=== PATIENT | female | born 1960 | race Caucasian/White ===

== ENCOUNTER 2016-07-31 18:04 | Emergency (ER) | payer OTHER, MEDICAID ==
[2013-02-13 17:22] VITALS: BMI 26.3
[~2016-07-31 18:04] MED LIST: ATIVAN0.5 MG PO; CELEXA20 MG PO; CRESTOR20 MG PO; LOTREL 10/20 CA1 CAP; NEXIUM40 MG PO; NORCO 5/325 TAB1 TA1 PO
== END 2016-07-31 22:35 | disposition home or self-care (01) ==
LOC: D.ER 18:04
DX: M25.552 Pain in left hip (principal); W01.0XXA Fall on same level from slipping, tripping and stumbling without subsequent striking against object, initial encounter; Y93.89 Activity, other specified; Y92.019 Unspecified place in single-family (private) house as the place of occurrence of the external cause; J44.9 Chronic obstructive pulmonary disease, unspecified; I10 Essential (primary) hypertension

== ENCOUNTER 2016-12-11 19:45 | Emergency (ER) | payer OTHER, MEDICAID ==
[2013-02-13 17:22] VITALS: BMI 26.3
== END 2016-12-11 23:20 | disposition home or self-care (01) ==
LOC: D.ER 19:45
DX: S82.001A Unspecified fracture of right patella, initial encounter for closed fracture (principal); W19.XXXA Unspecified fall, initial encounter; Y93.89 Activity, other specified; Y92.029 Unspecified place in mobile home as the place of occurrence of the external cause; F17.200 Nicotine dependence, unspecified, uncomplicated

== ENCOUNTER 2016-12-16 12:46 | Day surgery (SDC) | payer OTHER, MEDICAID ==
[~2016-12-16 12:46] MED LIST changes: +ALEVE220 MG PO; +HYDROCODONE-APA1 TAB PO; +KLONOPIN1 MG PO; -LOTREL 10/20 CA1 CAP; +LOTREL 10/20 CA1 CAP PO; +MEPERIDINE HCL50 MG PO; -NORCO 5/325 TAB1 TA1 PO
[2016-12-16 14:55] VITALS: BP 114/62; BMI 22.1
[2016-12-16 15:21] LABS: HEMATOCRIT 40.1 % (36.0-48.0); HEMOGLOBIN 13.4 g/dL (12-16); MCH 32.5 pg (26.0-34.0); MCHC 33.4 g/dL (31.0-37.0); MCV 97.3 fL (80.0-100.0); MEAN PLATELET VOLUME 10.7 fL (7.4-10.4); RBC 4.12 10x6/uL (4.00-5.40); RDW 13.3 % (11.5-14.5); WBC 6.2 10x3/uL (4.8-10.8)
[2016-12-16] MEDS ORDERED: PERCOCET 10/3251 TA1 PO (17:05)
--- NOTE | 2016-12-16 17:51 | NUR ---
PATIENT STATES PAIN IS 6/10. PATIENT REQUIRES SUPPLEMENTAL 2L/NC AFTER ADMINISTRATION OF DILAUDID 1MG. SHE IS CURRENTLY TAKING HYDROCODONE AND DEMEROL ON A DAILY BASIS. DISCHARGE PER ANESTHESIA.
--- NOTE | 2016-12-16 19:17 | NUR ---
181 IV DC WITH CATHER TIP INTACT
--- NOTE | 2016-12-29 08:10 | OP ---
PATIENT NAME: CONSTANZA SOLIS MEDICAL RECORD: [id number] :58 LOCATION:[facility] ADMISSION DATE: SURGEON: RAFY BENITES MD DATE OF OPERATION: 12/16/2016 PREOPERATIVE DIAGNOSIS: Transverse fracture of the right patella. POSTOPERATIVE DIAGNOSIS: Transverse fracture of the right patella. PROCEDURE: Open reduction and internal fixation of the right patella. SURGEON: Rafy Benites MD. ANESTHESIA: General. INTRAOPERATIVE COMPLICATIONS: None. SUMMARY OF PATHOLOGIC FINDINGS: The patient had a transverse fracture of the right patella consistent with preoperative radiographs. OPERATIVE SUMMARY IN DETAIL: After obtaining the appropriate preoperative orthopedic surgery consent as well as anesthetic consultation, evaluation and clearance, the patient was brought to the operating room and placed on the operating table in supine position. After general laryngeal mask was administered, tourniquet was placed about the proximal aspect of the right lower extremity. The right lower extremity was then prepped and draped in routine sterile fashion. The leg was elevated and exsanguinated, tourniquet inflated to 350 mmHg. Midline incision was taken down to the level of the fracture itself. Dissection was carried out to curettage all fracture hematoma and identified the split in the medial and lateral retinaculum. Large bone reduction forceps was used to reapproximate it into an anatomic position. Compression screws were then placed in triplicate across this, resulting in anatomic roman catholic. At this point, FiberWire was then placed in all 3 of the screws and then tied in a zxaiea-cy-stkoe position. Ethibond was then used to reapproximate the medial and lateral retinaculum. The wound was then copiously irrigated and closed with #1 Vicryl followed by 2-0 Vicryl and skin kim. Please note all of the above was done under direct fluoroscopic guidance, resulting in anatomic position. The patient was awakened and taken to recovery room in stable condition. All final needle and sponge counts were correct. TRANSINT:[id number] Voice Confirmation ID: [id number] DOCUMENT ID: [id number] RAFY BENITES MD at 0810 CC: [id number] DICTATION DATE: 12/29/16 0535 [employer] ASSOCIATE: 12/29/16 0806 [facility] 12/16/16 [address] [place] [address]
== END 2016-12-16 19:15 | disposition home or self-care (01) ==
LOC: D.OPS 12:46
PROVIDERS: Anesthesiology
DX: S82.031A Displaced transverse fracture of right patella, initial encounter for closed fracture (principal); F17.200 Nicotine dependence, unspecified, uncomplicated; Z01.812 Encounter for preprocedural laboratory examination

== ENCOUNTER → 2017-04-04 09:34 | Outpatient (CLI) | payer MEDICARE, MEDICAID ==
[~2017-04-04 09:34] MED LIST changes: +PERCOCET 10/3251 TA1 PO
== END | disposition home or self-care (01) ==
LOC: D.CT 03-25 08:30
DX: R63.4 Abnormal weight loss (principal)

== ENCOUNTER → 2017-05-05 17:55 | Outpatient (CLI) | payer MEDICARE, MEDICAID | END | disposition home or self-care (01) | LOC: D.MAMMO 10:30 | DX: Z12.31 Encounter for screening mammogram for malignant neoplasm of breast (principal) ==

== ENCOUNTER 2018-06-15 10:20 | Emergency (ER) | payer MEDICARE, MEDICAID ==
[~2018-06-15] VITALS: Ht 165.1 cm; Wt 77.3 kg
[2018-06-15 10:27] VITALS: Ht 165.1 cm; Wt 77.3 kg
[2018-06-15] MEDS ORDERED: BACLOFEN10 MG PO (10:34)
[2018-06-15] MEDS ORDERED: CARAFATE1 G PO (10:35)
[2018-06-15] MEDS ORDERED: ALBUTEROL SULF8.5 GM INH (10:35)
[2018-06-15] MEDS ORDERED: GEMFIBROZIL600 MG PO (10:35)
[2018-06-15] MEDS ORDERED: CELEXA20 MG PO (10:36)
[2018-06-15] MEDS ORDERED: RESTORIL15 MG PO (10:36)
[2018-06-15] MEDS ORDERED: NEXIUM40 MG PO (10:36)
[2018-06-15] MEDS ORDERED: TOPAMAX50 MG PO (10:37)
[2018-06-15] MEDS ORDERED: ZOFRAN ODT4 MG/UDTAB PO (10:37)
[2018-06-15] MEDS ORDERED: SCOT-TUSSI10 MG/5 ML PO (10:39)
[2018-06-15 10:57] LABS: APPEARANCE CLEAR (CLEAR); BILIRUBIN NEGATIVE (NEGATIVE); COLOR YELLOW (YELLOW); GLUCOSE NEGATIVE (NEGATIVE); KETONE NEGATIVE (NEGATIVE); NITRITE NEGATIVE (NEGATIVE); PROTEIN NEGATIVE (NEGATIVE); UROBILINOGEN NORMAL (NORMAL)
[2018-06-15 11:14] LABS: BASOPHILS 0.2 % (0-2); EOSINOPHILS 1.5 % (0-7); HEMATOCRIT 41.5 % (36.0-48.0); HEMOGLOBIN 13.7 g/dL (12-16); IMMATURE GRANULOCYTES 0.3 % (0-5); LYMPHOCYTES 24.3 % (15-50); MCH 32.8 pg (26.0-34.0); MCV 99.3 fL (80.0-100.0); MONOCYTES 7.5 % (2-11); NEUTROPHILS 66.2 % (40-80); RBC 4.18 10x6/uL (4.00-5.40); RDW 14.6 % (11.5-14.5); WBC 9.8 10x3/uL (4.8-10.8)
[2018-06-15 11:15] LABS: PLATELET COUNT 357 10x3/uL (130-400)
[2018-06-15 11:20] LABS: ALBUMIN 3.8 g/dL (3.4-5.0); ALKALINE PHOSPHATASE 217 U/L (46-116); ALT (SGPT) 14 U/L (10-68); BILIRUBIN - TOTAL 0.28 mg/dL (0.2-1.3); CALC OSMOLALITY 278 mosm/kg (275-300); CALCIUM 8.9 mg/dL (8.5-10.1); CHLORIDE - SERUM 104 mmol/L (98-107); CREATININE - SERUM 0.9 mg/dL (0.6-1.3); GLUCOSE 96 mg/dL (74-106); POTASSIUM - SERUM 3.6 mmol/L (3.5-5.1); PROTEIN - SERUM 8.4 g/dL (6.4-8.2); SODIUM 139 mmol/L (136-145); UREA NITROGEN 16 mg/dL (7-18); eGFR NON AFRICAN AMERICAN 68 mL/min (90-120)
[2018-06-15 11:23] LABS: AMYLASE - SERUM 50 U/L (25-115); LIPASE 161 U/L (73-393)
[2018-06-15 11:25] LABS: TROPONIN-I < 0.017 ng/mL (0.000-0.060)
[2018-06-15] MEDS ORDERED: ZOFRAN8 MG PO (13:22)
[2018-06-15 13:42] VITALS: BP 107/70
== END 2018-06-15 13:40 | disposition home or self-care (01) ==
LOC: D.ER 10:20
PROVIDERS: Family Medicine
DX: R10.13 Epigastric pain (principal); I10 Essential (primary) hypertension; J43.9 Emphysema, unspecified; K21.9 Gastro-esophageal reflux disease without esophagitis; F17.200 Nicotine dependence, unspecified, uncomplicated

== ENCOUNTER 2018-07-01 12:52 | Emergency (ER) | payer MEDICARE, MEDICAID ==
[~2018-07-01 12:52] MED LIST changes: +ALBUTEROL SULF8.5 GM INH; +BACLOFEN10 MG PO; +CARAFATE1 G PO; +GEMFIBROZIL600 MG PO; +RESTORIL15 MG PO; +SCOT-TUSSI10 MG/5 ML PO; +TOPAMAX50 MG PO; +ZOFRAN ODT4 MG/UDTAB PO; +ZOFRAN8 MG PO
[2018-07-01 13:33] LABS: APPEARANCE CLEAR (CLEAR); BILIRUBIN NEGATIVE (NEGATIVE); COLOR STRAW (YELLOW); GLUCOSE NEGATIVE (NEGATIVE); KETONE NEGATIVE (NEGATIVE); NITRITE NEGATIVE (NEGATIVE); PROTEIN NEGATIVE (NEGATIVE); SPECIFIC GRAVITY 1.005 (1.005-1.020); UROBILINOGEN NORMAL (NORMAL)
[2018-07-01 13:36] LABS: HEMATOCRIT 43.7 % (36.0-48.0); HEMOGLOBIN 14.8 g/dL (12-16); MCH 33.2 pg (26.0-34.0); MCHC 33.9 g/dL (31.0-37.0); MEAN PLATELET VOLUME 9.8 fL (7.4-10.4); PLATELET COUNT 366 10x3/uL (130-400); RBC 4.46 10x6/uL (4.00-5.40); WBC 9.5 10x3/uL (4.8-10.8)
[2018-07-01 13:44] LABS: ALBUMIN 3.7 g/dL (3.4-5.0); ANION GAP 17.3 mmol/L (8-16); BILIRUBIN - TOTAL 0.22 mg/dL (0.2-1.3); CALCIUM 8.6 mg/dL (8.5-10.1); CARBON DIOXIDE 20.1 mmol/L (21.0-32.0); CREATININE - SERUM 1.1 mg/dL (0.6-1.3); POTASSIUM - SERUM 3.4 mmol/L (3.5-5.1); PROTEIN - SERUM 8.2 g/dL (6.4-8.2)
[2018-07-01 13:59] LABS: HELICOBACTER PYLORI IGG NEGATIVE (NEGATIVE)
[2018-07-01] MEDS ORDERED: PROTONIX40 MG PO (14:01)
[2018-07-01 14:03] LABS: LYMPHOCYTES 11 % (15-50); MONOCYTES 7 % (2-11); NEUTROPHILS 73 % (40-80); PLATELET ESTIMATE NORMAL
[2018-07-01] MEDS ORDERED: PHENERGAN25 M1 PO (14:03)
== END 2018-07-01 14:13 | disposition home or self-care (01) ==
LOC: D.ER 12:52
PROVIDERS: Emergency Medicine
DX: R11.0 Nausea (principal)

== ENCOUNTER 2018-10-09 11:50 | Emergency (ER) | payer MEDICARE, MEDICAID ==
[~2018-10-09] VITALS: Ht 165.1 cm; Wt 77.3 kg
[~2018-10-09 11:50] MED LIST changes: +PHENERGAN25 M1 PO; +PROTONIX40 MG PO
[2018-10-09 12:32] VITALS: Ht 165.1 cm; Wt 77.3 kg
[2018-10-09] MEDS ORDERED: NEURONTIN 400400 MG PO (12:37)
[2018-10-09] MEDS ORDERED: BACLOFEN10 MG PO (15:36)
[2018-10-09 15:51] VITALS: BP 103/54
== END 2018-10-09 15:52 | disposition home or self-care (01) ==
LOC: D.ER 11:50
DX: M43.8X6 Other specified deforming dorsopathies, lumbar region (principal); M54.16 Radiculopathy, lumbar region

== ENCOUNTER 2019-03-07 13:51 | Emergency (ER) | payer MEDICARE, MEDICAID ==
[~2019-03-07] VITALS: Ht 165.1 cm; Wt 81.8 kg
[~2019-03-07 13:51] MED LIST changes: +NEURONTIN 400400 MG PO
[2019-03-07 13:58] VITALS: Ht 165.1 cm; Wt 81.8 kg
[2019-03-07 14:42] LABS: BASOPHILS 0.2 % (0-2); EOSINOPHILS 1.2 % (0-7); HEMATOCRIT 37.3 % (36.0-48.0); HEMOGLOBIN 12.5 g/dL (12-16); IMMATURE GRANULOCYTES 0.7 % (0-5); LYMPHOCYTES 12.2 % (15-50); MCH 34.8 pg (26.0-34.0); MCHC 33.5 g/dL (31.0-37.0); MCV 103.9 fL (80.0-100.0); MEAN PLATELET VOLUME 9.1 fL (7.4-10.4); MONOCYTES 6.9 % (2-11); NEUTROPHILS 78.8 % (40-80); PLATELET COUNT 373 10x3/uL (130-400); RBC 3.59 10x6/uL (4.00-5.40); RDW 14.2 % (11.5-14.5); WBC 12.1 10x3/uL (4.8-10.8)
[2019-03-07 14:46] LABS: CALC OSMOLALITY 278 mosm/kg (275-300); CALCIUM 8.6 mg/dL (8.5-10.1); CARBON DIOXIDE 20.2 mmol/L (21.0-32.0); CHLORIDE - SERUM 107 mmol/L (98-107); CREATININE - SERUM 0.8 mg/dL (0.6-1.3); GLUCOSE 118 mg/dL (74-106); SODIUM 138 mmol/L (136-145); UREA NITROGEN 18 mg/dL (7-18); eGFR NON AFRICAN AMERICAN 78 mL/min (90-120)
[2019-03-07] MEDS ORDERED: ZOFRAN ODT4 MG/UDTAB PO (15:32)
[2019-03-07 15:48] VITALS: BP 126/97
== END 2019-03-07 15:41 | disposition home or self-care (01) ==
LOC: D.ER 13:51
PROVIDERS: Emergency Medicine
DX: R10.9 Unspecified abdominal pain (principal); R11.10 Vomiting, unspecified; I10 Essential (primary) hypertension; Z72.0 Tobacco use; J44.9 Chronic obstructive pulmonary disease, unspecified

== ENCOUNTER → 2019-03-20 20:00 | Outpatient (CLI) | payer MEDICARE, MEDICAID | END | disposition home or self-care (01) | LOC: D.MAMMO 02-22 15:30 | PROVIDERS: ATTEND Family Medicine | DX: Z12.31 Encounter for screening mammogram for malignant neoplasm of breast (principal) ==

== ENCOUNTER → 2019-05-18 10:19 | Outpatient (CLI) | payer MEDICARE, MEDICAID ==
[2019-05-18 11:12] LABS: ALBUMIN 3.6 g/dL (3.4-5.0); BILIRUBIN - DIRECT 0.1 mg/dL (0.00-0.30); BILIRUBIN - INDIRECT 0.14 mg/dL (0.00-1.00); BILIRUBIN - TOTAL 0.24 mg/dL (0.2-1.3)
[2019-05-19 07:12] LABS: HEPATITIS C ANTIBODY 0.3 S/CO RAT (0.0-0.9)
== END | disposition home or self-care (01) ==
LOC: D.LAB 10:19 → D.US 11:00 → D.NM 11:30
PROVIDERS: ATTEND Internal Medicine Gastroenterology
DX: R11.2 Nausea with vomiting, unspecified (principal); R10.13 Epigastric pain

== ENCOUNTER 2019-06-04 10:53 | Emergency (ER) | payer MEDICARE, MEDICAID ==
[~2019-06-04] VITALS: Ht 165.1 cm; Wt 84.5 kg
[2019-06-04 10:55] VITALS: Ht 165.1 cm; Wt 84.5 kg
[2019-06-04] MEDS ORDERED: CYCLOBENZAPRINE10 MG PO (10:59)
[2019-06-04] MEDS ORDERED: EC-NAPROSYN500 MG PO (12:16)
[2019-06-04 12:28] VITALS: BP 124/58
== END 2019-06-04 12:29 | disposition home or self-care (01) ==
LOC: D.ER 10:53
DX: S20.219A Contusion of unspecified front wall of thorax, initial encounter (principal); W19.XXXA Unspecified fall, initial encounter; Y93.9 Activity, unspecified; Y92.9 Unspecified place or not applicable; M94.0 Chondrocostal junction syndrome [Tietze]; I10 Essential (primary) hypertension; J44.9 Chronic obstructive pulmonary disease, unspecified; Z72.0 Tobacco use; K21.9 Gastro-esophageal reflux disease without esophagitis

== ENCOUNTER 2019-06-25 09:12 | Emergency (ER) | payer MEDICARE, MEDICAID ==
[~2019-06-25] VITALS: Ht 165.1 cm; Wt 81.8 kg
[~2019-06-25 09:12] MED LIST changes: +CYCLOBENZAPRINE10 MG PO; +EC-NAPROSYN500 MG PO
[2019-06-25 09:15] VITALS: Ht 165.1 cm; Wt 81.8 kg
[2019-06-25 09:53] LABS: BASOPHILS 0.1 % (0-2); EOSINOPHILS 0.5 % (0-7); HEMOGLOBIN 14.2 g/dL (12-16); IMMATURE GRANULOCYTES 0.8 % (0-5); LYMPHOCYTES 14.7 % (15-50); MCH 31.8 pg (26.0-34.0); MCHC 30.9 g/dL (31.0-37.0); MCV 103.1 fL (80.0-100.0); MEAN PLATELET VOLUME 9.3 fL (7.4-10.4); MONOCYTES 7.5 % (2-11); NEUTROPHILS 76.4 % (40-80); PLATELET COUNT 472 10x3/uL (130-400); RBC 4.46 10x6/uL (4.00-5.40); WBC 16.8 10x3/uL (4.8-10.8)
[2019-06-25 10:02] LABS: APTT 37.8 SECONDS (22.8-39.4); CALC OSMOLALITY 275 mosm/kg (275-300); CALCIUM 9.2 mg/dL (8.5-10.1); CARBON DIOXIDE 22.9 mmol/L (21.0-32.0); CHLORIDE - SERUM 103 mmol/L (98-107); CREATININE - SERUM 1.2 mg/dL (0.6-1.3); GLUCOSE 115 mg/dL (74-106); INR 1.1 (0.85-1.17); POTASSIUM - SERUM 3.3 mmol/L (3.5-5.1); PROTIME 14.2 SECONDS (11.6-15.0); SODIUM 137 mmol/L (136-145); UREA NITROGEN 15 mg/dL (7-18); eGFR NON AFRICAN AMERICAN 49 mL/min (90-120)
[2019-06-25 10:11] LABS: ALBUMIN 3.8 g/dL (3.4-5.0); ALKALINE PHOSPHATASE 274 U/L (30-120); ALT (SGPT) 15 U/L (10-68); BILIRUBIN - TOTAL 0.24 mg/dL (0.2-1.3); LIPASE 94 U/L (73-393); PROTEIN - SERUM 8.3 g/dL (6.4-8.2); TROPONIN-I < 0.017 ng/mL (0.000-0.060)
[2019-06-25 11:38] LABS: BILIRUBIN NEGATIVE (NEGATIVE); GLUCOSE NEGATIVE (NEGATIVE); KETONE NEGATIVE (NEGATIVE); NITRITE NEGATIVE (NEGATIVE); UROBILINOGEN NORMAL (NORMAL)
[2019-06-25 11:42] LABS: UDS - AMPHET NEGATIVE QUAL (NEGATIVE); UDS - BARB NEGATIVE QUAL (NEGATIVE); UDS - BENZO NEGATIVE QUAL (NEGATIVE); UDS - COCAINE NEGATIVE QUAL (NEGATIVE); UDS - OPIATE POSITIVE QUAL (NEGATIVE); UDS - PCP NEGATIVE QUAL (NEGATIVE); UDS - THC NEGATIVE QUAL (NEGATIVE)
[2019-06-25] MEDS ORDERED: CIPRO500 MG PO (12:58)
[2019-06-25] MEDS ORDERED: CARAFATE1 G PO (12:58)
[2019-06-25] MEDS ORDERED: ZOFRAN8 MG PO (12:58)
[2019-06-25 15:16] VITALS: BP 135/86
== END 2019-06-25 15:18 | disposition home or self-care (01) ==
LOC: D.ER 09:12
PROVIDERS: Family Medicine
DX: K52.9 Noninfective gastroenteritis and colitis, unspecified (principal); R11.10 Vomiting, unspecified; K44.9 Diaphragmatic hernia without obstruction or gangrene

== ENCOUNTER 2019-07-24 10:33 | Inpatient (IN) | payer MEDICARE, MEDICAID ==
[~2019-07-24] VITALS: Ht 165.1 cm; Wt 82.6 kg
[2019-07-24] VITALS (8 sets, daily range): BP systolic 101–126; BP diastolic 59–82; BMI 30.3
--- NOTE | ~2019-07-24 | HEMODYNAMI ---
PATIENT:CONSTANZA SOLIS MEDICAL RECORD: [id number] : 58 LOCATION:[facility] D.[address] [facility]# [id number] ADMISSION DATE: 07/24/19 Generatedon:07/26/201913:06 Patient name: CONSTANZA SOLIS Patient #: [id number] SSN: [id number] : 1960 Date of study: 07/26/2019 Page: Of Hemodynamic Procedure Report Patient Data Patient Demographics Procedure consent was obtained First Name: CONSTANZA Gender: Female Last Name: WILL : 1960 Middle Initial: L Age: 58 year(s) Patient #: [id number] Race: Unknown SSN: [id number] Additional ID: [id number] Contact details Address: [address] [place] [address] State: [place] City: [facility] Zip code: [address] Past Medical History Allergies: No known allergies Admission Admission Data Admission Date: 07/24/2019 Admission Time: 12:59 Arrival Date: 07/26/2019 Arrival Time: 0:00 Admit Source: Other Insurance Payor: Medicare Room #: D.2111 [facility] #: [id number] Height (in.): 64.96 BSA: 1.89 (m2) Height (cm.): 165 BMI: 30.12 (kg/m2) Weight (lbs.): 180.78 Weight (kg.): 82 Lab Results Lab Result Date: 07/26/2019 Lab Result Time: 0:00 Biochemistry Name Units Result Min Max BUN mg/dl 6 -*(----)-- 7 18 Creatinine mg/dl 0.7 --(*---)-- 0.6 1.3 eGFR ml/min 90 --(*---)-- 90 120 NONAFRICAN CBC Name Units Result Min Max Hemoglobin g/dl 11.2 *-(----)-- 13.5 17.5 Procedure Procedure Types Cath Procedure Diagnostic Procedure LHC [facility] w/Coronaries Sedation Charges Moderate Sedation up to 15 minutes Peripheral Cath Diagnostic Procedure Spinning Frame Fixer Peripheral Procedures Four Vessel Arteriogram Procedure Description Procedure Date Procedure Date: 07/26/2019 Procedure Start Time: 12:51 Procedure End Time: 13:05 Procedure Staff Name Function Avelino Perdue MD Performing Physician Chantel Peter RT Monitor Kirill Willett RN Nurse Mary Barnes RT Scrub Indication Syncopal episode Procedure Data Cath Procedure Fluoroscopy Diagnostic fluoroscopy Total fluoroscopy Time: 3.9 time: 3.9 min min Diagnostic fluoroscopy Total fluoroscopy dose: 684 dose: 684 mGy mGy Contrast Material Contrast Material Type Amount (ml) Isovue 300 71 Entry Location Entry Primary Successful Side Size Upsize Upsize Entry Closure Succes sful Closure Location (Fr) 1 (Fr) 2 (Fr) Remarks Device Remarks Femoral Right 5 Fr Exoseal artery Estimated blood loss: 10 ml Diagnostic catheters Device Type Used For End Catheter Placement MULTIPACK JL 4.0 5Fr Procedure catheter MULTIPACK 3DRC 5Fr Procedure catheter MULTIPACK Pigtail 5 Fr Ventriculography catheter Procedure Complications No complications Procedure Medications Medication Administration Route Dosage Oxygen etCO2 Nasal cannula 2 l/min Heparin Flush Bag added to field 2 bags (1000units/500ml NS) 0.9% NaCl I.V. 100 ml/hr Lidocaine 2% added to field 20 Fentanyl I.V. 50 mcg Versed I.V. 1 mg Fentanyl I.V. 50 mcg Versed I.V. 1 mg Fentanyl I.V. 50 mcg Fentanyl I.V. 50 mcg Hemodynamics Rest BSA: 1.89 (m2) O2 Consumption: Estimated: 209.15 (ml/min) O2 Consumption indexed : Estimated:110.66 (ml/min/m) Heart Rate: 111 (bpm) Pressure Samples Time Site Value (mmHg) Purpose Heart Use Rate(bpm) 13:00 LV 125/17,20 Snapshot 111 13:00 AO 124/73(97) Pullback 113 Gradients Valve Time Site Site 2 Mean SEP/DFP Peak To Heart Use 1 (mmHg) (sec/min) Peak Rate (mmHg) (bpm) Aortic 13:00 LV AO 31 15 113 124/73(97) Calculations Valve P-P Mean Valve Index Valve Source Name Gradient Area Flow (cm2) Aortic 31 31 Snapshots Pre Cath Intra NCS Post Cath Vital Signs Time Heart Resp SPO2 etCO2 NIBP (mmHg) Rhythm Pain Sedation Rate (ipm) (%) (mmHg) Status Level (bpm) 12:37:45 112 16 99 26.3 129/78(98) NSR 0 (11) 10(A) , No pain 12:41:51 112 16 99 24.8 125/77(97) NSR 0 (11) 10(A) , No pain 12:45:57 112 16 96 24.1 125/74(97) NSR 0 (11) 10(A) , No pain 12:50:05 112 17 95 24.1 129/78(101) NSR 0 (11) 10(A) , No pain 12:54:13 110 17 96 26.3 127/76(99) NSR 0 (11) 9(A) , No pain 12:58:21 113 18 95 27.8 126/80(94) NSR 0 (11) 9(A) , No pain 13:02:28 112 17 94 24.8 129/82(102) NSR 0 (11) 9(A) , No pain 13:06:18 109 12 95 27.8 126/83(102) NSR 0 (11) 9(A) , No pain Medications Time Medication Route Dose Verified Delivered Reason Notes Eff ectiveness by by 12:37:06 Oxygen etCO2 2 Avelino Kirill Per Nasal l/min St Ottoniel Willett RN physician cannula 12:37:15 Heparin Flush added 2 Avelino Kirill used for Bag to bags [facility] Ottoniel Willett RN procedure (1000units/500ml field LINARES NS) 12:37:23 0.9% NaCl I.V. 100 Avelino Pikey Per ml/hr St Ottoniel Willett RN physician 12:37:34 Lidocaine 2% added 20ml Avelino Pikey for local to vial [facility] Ottoniel Willett RN anesthetic field LINARES 12:43:16 Fentanyl I.V. 50 Avelino Roy for [facility] Ottoniel Willett RN sedation 12:43:23 Versed I.V. 1 mg Avelino Pikey for [facility] Ottoniel Willett RN sedation 12:49:24 Fentanyl I.V. 50 Avelino Pikey for [facility] Ottoniel Willett RN sedation 12:49:29 Versed I.V. 1 mg Avelino Pikey for [facility] Ottoniel Willett RN sedation 12:51:56 Fentanyl I.V. 50 Avelino Roy for [facility] Ottoniel Willett RN sedation 12:55:01 Fentanyl I.V. 50 Avelino Roy for [facility] Ottoniel Willett RN sedation Procedure Log Time Note 12:17:57 Arrival Date: 07/26/2019 12:00:00 AM 12:18:08 Admit Source: Other 12:18:16 Insurance Payor : Medicare 12:18:21 Patient Height : 64.96 inches 12:18:25 Patient Weight : 180.78 lbs 12:18:59 Lab Result : Creatinine 0.7 mg/dl 12:18:59 Lab Result : BUN 6 mg/dl 12:18:59 Lab Result : Hemoglobin 11.2 g/dl 12:18:59 Lab Result : eGFR NONAFRICAN 90 ml/min 12:19:23 Diagnostic Cath Status : Urgent 12:19:50 Indication : Syncopal episode 12:20:00 Procedure Status Urgent Heart Cath (IP). 12:20:04 Kirill Willett RN sent for patient. Start room use. 12:20:18 Time tracking: Regular hours (M-F 7:00 - 5:00) 12:20:23 Plan of Care:Hemodynamics will remain stable., Cardiac rhythm will remain stable., Comfort level will be maintained., Respiratory function will remain adequate., Patient/ family verbilizes understanding of procedure., Procedure tolerated without complication., Recovers from procedure without complications.. 12:20:29 Patient received from Pre/Post Procedure Room to CCL 2 Alert and oriented. Tansferred to table in Supine position. 12:20:32 Signed procedure consent form obtained from patient. 12:20:33 Warm blankets applied, and radha hugger turned on for patient comfort. 12:20:34 Correct patient and procedure confirmed by team. 12:20:45 H&P Date Dictated: 07/24/2019 Within 30 days and on chart., H&P Addendum completed by physician on day of procedure. (MUST COMPLETE FOR ALL OUTPATIENTS). 12:20:48 Pre-procedure instructions explained to patient. 12:20:51 Family unavailable. 12:20:54 Patient NPO since Midnight. 12:21:07 Patient allergic to No known allergies 12:21:10 Is the patient allergic to Iodine/contrast media? No. 12:21:11 Was the patient premedicated? Yes 12:21:14 Is patient on blood thinner?No 12:36:08 Patient diabetic? No. 12:36:11 Snore? Yes 12:36:13 Sleep apnea? No 12:36:29 Airway obstruction? Yes Asthma, COPD 12:36:39 IV patent on arrival in left forearm with 0.9% NaCl at [facility]. 12:36:44 Vital chart was started 12:36:46 Lab results completed and on chart. 12:37:06 Oxygen 2 l/min etCO2 Nasal cannula was administered by Kirill Willett RN; Per physician; Verbal order read back and verified. 12:37:15 Heparin Flush Bag (1000units/500ml NS) 2 bags added to field was administered by Kirill Willett RN; used for procedure; Verbal order read back and verified. 12:37:15 Right groin area was prepped with chlora-prep and draped in sterile fashion 12:37:17 Alarms reviewed by R. N. 12:37:17 Sharps counted by scrub and verified by R.N. 12:37:19 Physician arrived 12:37:23 0.9% NaCl 100 ml/hr I.V. was administered by Kirill Willett RN; Per physician; Verbal order read back and verified. 12:37:26 Right groin site verified by team. 12:37:30 Fire Safety Assessment: A--An alcohol-based skin anteseptic being used preoperatively., C--Open oxygen or nitrous oxide is being used., D--An ESU, laser, or fiber-optic light is being used. 12:37:34 Lidocaine 2% 20ml vial added to field was administered by Kirill Willett RN; for local anesthetic; Verbal order read back and verified. 12:37:34 Physical assessment completed. ASA score P 3 - A patient with severe systemic disease as per Avelino Perdue MD. 12:37:38 1) 90+ Normal kidney functon but urine findings or structural abnormalities or genetic trait point to kidney disease. 12:37:41 Maximum allowable contrast dose (3.7 X eGFR X 0.75)250 ml. 12:37:46 Sedation plan: IV Moderate Sedation Medication:Versed, Fentanyl 12:41:25 Zero performed for pressure channel P1 12:43:05 --------ALL STOP TIME OUT------ 12:43:06 Final Timeout: patient, procedure, and site verified with staff and physician. All members of the team are in agreement. 12:43:16 Fentanyl 50 mcg I.V. was administered by Kirill Willett RN; for sedation; Verbal order read back and verified. 12:43:23 Versed 1 mg I.V. was administered by Kirill Willett RN; for sedation; Verbal order read back and verified. 12:49:24 Fentanyl 50 mcg I.V. was administered by Kirill Willett RN; for sedation; Verbal order read back and verified. 12:49:29 Versed 1 mg I.V. was administered by Kirill Willett RN; for sedation; Verbal order read back and verified. 12:51:41 Use device set Femoral Dx 12:51:43 Procedure started. 12:51:43 Full Disclosure recording started 12:51:47 Local anesthetic to right femoral artery with Lidocaine 2% by Avelino Perdue MD.INITIAL ACCESS ONLY 12:51:56 Fentanyl 50 mcg I.V. was administered by Kirill Willett RN; for sedation; Verbal order read back and verified. 12:52:05 ACIST Syringe (24546) opened to sterile field. 12:52:05 Bag Decanter (2002S) opened to sterile field. 12:52:06 Medline Cath Pack ([id number]) opened to sterile field. 12:52:07 ACIST Hand Control (45458) opened to sterile field. 12:52:07 ACIST Manifold (36254) opened to sterile field. 12:52:08 DIAGNOSTIC Multipack 5Fr catheter set ([id number]) opened to sterile field. 12:52:09 Tegaderm 4 x 4 (1626W) opened to sterile field. 12:52:11 SHEATH 5FR Bulpitt (OHR331) opened to sterile field. 12:52:12 EXOSEAL 5Fr (EX500) opened to sterile field. 12:52:13 KARLALD Guide Wire (493-588) opened to sterile field. 12:52:23 A 5 Fr sheath was inserted into the Right Femoral artery 12:52:27 J wire advanced. 12:52:58 A MULTIPACK JL 4.0 5Fr catheter was advanced over the wire and used for Procedure. 12:53:00 LCA angiography performed. 12:54:05 Catheter removed. 12:54:13 A MULTIPACK 3DRC 5Fr catheter was advanced over the wire and used for Procedure. 12:54:16 RCA angiography performed. 12:55:01 Fentanyl 50 mcg I.V. was administered by Kirill Willett RN; for sedation; Verbal order read back and verified. 12:57:22 GLIDE WIRE ANGLE 260cm ([id number]) opened to sterile field. 12:57:41 glidewire exchanged 12:57:56 Right carotid angiography performed. 12:58:57 Left carotid angiography performed. 12:59:39 Catheter removed. 12:59:57 A MULTIPACK Pigtail 5 Fr catheter was advanced over the wire and used for Ventriculography. 13:01:01 EF : 55 % 13:02:23 Catheter removed. 13:02:44 Sheath removed intact; hemostasis achieved with Exoseal to the Right Femoral artery. 13:02:47 Procedure ended.(Physican Out) 13:02:59 Fluoroscopy time 03.90 minutes. 13:03:03 Fluoroscopy dose: 684 mGy 13:03:03 Flurop Dose total: 684 13:03:07 Dose Area Product 16675 mGy/cm. 13:03:11 Contrast amount:Isovue 300 71ml. 13:03:13 Maximum allowable dose exceeded? No. 13:03:14 Insertion/operative site no bleeding no hematoma. 13:03:17 Post-op/insertion site Right Femoral artery dressed using a 4 x 4 and Tegaderm. 13:03:19 Post Procedure Pulses reassessed and unchanged 13:03:27 Post-procedure physical assessment completed. ASA score P 2 - A patient with mild systemic disease as per Avelino Perdue MD. 13:03:36 Post procedure rhythm: unchanged. 13:03:51 Estimated blood loss: 10 ml 13:03:53 Post procedure instruction explained to patient.Patient verbalizes understanding. 13:04:09 Procedure type changed to Cath procedure, Diagnostic procedure, LHC, [facility] w/Coronaries, Sedation Charges, Moderate Sedation up to 15 minutes, Peripheral Cath Diagnostic Procedure, Spinning Frame Fixer Peripheral Procedures, Four Vessel Arteriogram 13:04:11 Procedure and supply charges have been captured, reviewed, submitted and are correct. 13:04:47 Procedure Complication : No complications 13:04:50 Vital chart was stopped 13:04:54 [facility] Findings: mild to moderate CAD (<70%) 13:04:59 4Vessel Findings: mild to moderate disease (<70%, see procedure notes) 13:05:05 Report given to Med II. 13:05:11 Patient transfered to Med II with Bed. 13:05:13 Procedure ended. 13:05:13 Full Disclosure recording stopped 13:05:18 End room use (Document Last) 13:05:21 Vital chart was started 13:06:43 Vital chart was stopped Device Usage Item Name Manufacture Quantity Catalog Hospital Part Current Minimal L ot# / Number Charge Number Stock Stock Serial# Code ACIST Acist 1 08524 [id number] 502937 670485 20 Syringe Medical (78829) Systems Inc Bag Microtek 1 734002 13653 959498 5 Decanter Medical Inc. () Medline Medline 1 [id number] 025018 93357 661374 5 Cath Pack ([id number]) ACIST Hand Acist 1 63226 062853 973498 405631 5 Control Medical (92589) Systems Inc ACIST Acist 1 08233 753218 754120 948845 5 Manifold Medical (88059) Systems Inc DIAGNOSTIC Cardinal 1 [id number] 608281 24731 087688 30 Multipack Health 5Fr catheter set (PC6028) Tegaderm 4 3M 1 1626W 730552 611099 279394 5 x 4 (1626W) SHEATH 5FR Terumo 1 JGZ387 910990 253531 506077 5 Bulpitt (XYR096) EXOSEAL 5Fr Cardinal 1 EX500 150049 182779 865558 10 (EX500) Health EMERALD Cardinal 1 502-455 874170 870275 191260 5 Guide Wire Health (502-455) MULTIPACK Cardinal 1 232061 5 JL 4.0 5Fr Health catheter MULTIPACK Cardinal 1 604884 5 3DRC 5Fr Health catheter GLIDE WIRE Terumo 1 ZV8291 982864 703984 387343 5 ANGLE 260cm (RQ9761) MULTIPACK Cardinal 1 344920 5 Pigtail 5 Health Fr catheter Signature Audit [place] Stage Time Signature Unsigned Intra-Procedure 07/26/2019 Chantel Peter 1:05:46 PM RT(R) Intra-Procedure 07/26/2019 Kirill Willett 1:06:18 PM RN Intra-Procedure 07/26/[address] 1:06:41 PM Ottoniel Signatures Performing Physician : Signature : Avelino Perdue MD Date : Time : Monitor : Chantel Ortizur Signature : RT Date : Time : Nurse : Kirill Willett RN Signature : Date : Time : [facility] [address] [place] [address]
[~2019-07-24 10:33] MED LIST changes: +CIPRO500 MG PO
[2019-07-24 11:26] LABS: APTT 39.1 SECONDS (22.8-39.4); INR 1.17 (0.85-1.17); PROTIME 14.9 SECONDS (11.6-15.0)
[2019-07-24 11:28] LABS: BASOPHILS 0.1 % (0-2); EOSINOPHILS 1.3 % (0-7); HEMATOCRIT 39.5 % (36.0-48.0); HEMOGLOBIN 12.2 g/dL (12-16); IMMATURE GRANULOCYTES 0.7 % (0-5); LYMPHOCYTES 13.4 % (15-50); MCH 31.5 pg (26.0-34.0); MCHC 30.9 g/dL (31.0-37.0); MCV 102.1 fL (80.0-100.0); MEAN PLATELET VOLUME 9.3 fL (7.4-10.4); MONOCYTES 6.6 % (2-11); NEUTROPHILS 77.9 % (40-80); RBC 3.87 10x6/uL (4.00-5.40); RDW 14.4 % (11.5-14.5); WBC 10.4 10x3/uL (4.8-10.8)
[2019-07-24 11:35] LABS: ALBUMIN 3.1 g/dL (3.4-5.0); ALKALINE PHOSPHATASE 200 U/L (30-120); ALT (SGPT) 21 U/L (10-68); BILIRUBIN - TOTAL 0.21 mg/dL (0.2-1.3); CALC OSMOLALITY 278 mosm/kg (275-300); CARBON DIOXIDE 24.1 mmol/L (21.0-32.0); CHLORIDE - SERUM 105 mmol/L (98-107); CKMB 0.5 U/L (0.0-3.6); CREATINE KINASE 41 UL (21-215); CREATININE - SERUM 0.9 mg/dL (0.6-1.3); GLUCOSE 139 mg/dL (74-106); PLATELET COUNT 367 10x3/uL (130-400); PROTEIN - SERUM 6.7 g/dL (6.4-8.2); SODIUM 139 mmol/L (136-145); TROPONIN-I < 0.017 ng/mL (0.000-0.060); UREA NITROGEN 9 mg/dL (7-18); eGFR NON AFRICAN AMERICAN 68 mL/min (90-120)
[2019-07-24 11:38] LABS: POTASSIUM - SERUM 2.8 mmol/L (3.5-5.1)
--- NOTE | 2019-07-24 11:38 | NUR ---
ERP INFORMED OF K+ OF 2.8
--- NOTE | 2019-07-24 14:00 | NUR ---
URINE SENT TO THE LAB.
[2019-07-24 14:48] LABS: BILIRUBIN NEGATIVE (NEGATIVE); EPITHELIAL CELLS RARE /hpf (0-5); GLUCOSE NEGATIVE (NEGATIVE); KETONE NEGATIVE (NEGATIVE); NITRITE NEGATIVE (NEGATIVE); RED CELLS - URINE NONE SEEN /hpf (0-5); UROBILINOGEN NORMAL (NORMAL); WHITE CELLS - URINE NSEEN /hpf (NEGATIVE)
[2019-07-24 14:49] LABS: BACTERIA FEW /hpf (NEGATIVE)
--- NOTE | 2019-07-24 15:21 | NUR ---
RECEIVED PT TO ROOM 2110 VIA STRETCHER. PT WAS ABLE TO TRANFER SELF FROM STRETCHER TO BED WITH STEADY GATE. ORIENTED PT TO ROOM AND CALL LIGHT, WILL ASSESS PT AND START PLAN OF CARE.
[2019-07-24] MEDS ORDERED: HYDROCODON-ACE1 EAC2 PO (15:31)
[2019-07-24] MEDS ORDERED: SYMBICORT 16010.2 GM INH (15:31)
[2019-07-24] MEDS ORDERED: LASIX40 MG PO (15:34)
--- NOTE | 2019-07-24 15:45 | NUR ---
PAGED MANISHA MOELLER, WAITING WET PAN OPERATOR BACK.
--- NOTE | 2019-07-24 16:34 | NUR ---
CALLED CARDIOLOGY CLINIC AND LEFT A VOICEMAIL FOR YULIANA TO CALL THIS NURSE BACK.
--- NOTE | 2019-07-24 16:57 | NUR ---
NORCO GIVEN FOR PAIN LEVEL OF 8/10. PT EATING DINNER, DENIES ANY NEEDS AT THIS TIME. CALL LIGHT IN REACH, NAD NOTED,WILL CONTINUE TO MONITOR.
--- NOTE | 2019-07-24 19:15 | NUR ---
REPORT RECEIVED, WILL CONTINUE POC. PATIENT IS AAOX4, SITTING UP IN BED. NO S/S OF DISTRESS OBSERVED, RR EVEN AND UNLABORED ON ROOM AIR. PATIENT C/O PAIN TO HER BACK, INFORMED PATIENT SHE CAN'T HAVE HER PRN PAIN MED YET. EDUCATED ON ALTERNATIVE PAIN RELEIVING MEASURES. PIV TO LT HAND INFUSING NS WITH 20KCL 100 ML/HR. PATIENT DENIES FURTHER NEEDS AT THIS TIME. CL IN REACH, BED LOCKED AND LOWERED. WILL CTM.
[2019-07-25] VITALS: BP 121/76
[2019-07-25 04:00] VITALS: BP 116/72
--- NOTE | 2019-07-25 04:13 | NUR ---
HEARD PATIENT HOLLERING AND CRYING OUT FROM NURSES STATION. WENT TO CHECK ON PATIENT AND SHE WAS SOBBING. I ASKED HER IF SHE WAS IN PAIN AND SHE KEPT SHAKING HER HEAD YES. ADMINISTERED PRN MORPHINE AND ZOFRAN PER ORDERS. SEEMED TO IMMEDIATELY ALLEVIATE PAIN. WILL CTM.
--- NOTE | 2019-07-25 05:24 | NUR ---
PO MEDS HELD THIS AM DUE TO PATIENT BEING NPO PENDING CARDIAC CONSULT.
[2019-07-25 06:26] LABS: BASOPHILS 0.2 % (0-2); EOSINOPHILS 1.6 % (0-7); HEMATOCRIT 36.7 % (36.0-48.0); HEMOGLOBIN 11.2 g/dL (12-16); IMMATURE GRANULOCYTES 0.7 % (0-5); LYMPHOCYTES 17.1 % (15-50); MCH 31.5 pg (26.0-34.0); MCHC 30.5 g/dL (31.0-37.0); MCV 103.1 fL (80.0-100.0); MEAN PLATELET VOLUME 9.6 fL (7.4-10.4); MONOCYTES 8.8 % (2-11); NEUTROPHILS 71.6 % (40-80); PLATELET COUNT 359 10x3/uL (130-400); RBC 3.56 10x6/uL (4.00-5.40); RDW 14.6 % (11.5-14.5); WBC 8.6 10x3/uL (4.8-10.8)
[2019-07-25 07:05] LABS: ALBUMIN 2.7 g/dL (3.4-5.0); ALKALINE PHOSPHATASE 192 U/L (30-120); ALT (SGPT) 19 U/L (10-68); BILIRUBIN - TOTAL 0.13 mg/dL (0.2-1.3); CHLORIDE - SERUM 112 mmol/L (98-107); CKMB 0.9 U/L (0.0-3.6); CREATINE KINASE 45 UL (21-215); CREATININE - SERUM 0.7 mg/dL (0.6-1.3); PROTEIN - SERUM 5.7 g/dL (6.4-8.2); SODIUM 144 mmol/L (136-145); eGFR NON AFRICAN AMERICAN > 90 mL/min (90-120)
[2019-07-25 07:06] LABS: CALC OSMOLALITY 283 mosm/kg (275-300); GLUCOSE 88 mg/dL (74-106); POTASSIUM - SERUM 3.8 mmol/L (3.5-5.1); TROPONIN-I < 0.017 ng/mL (0.000-0.060); UREA NITROGEN 6 mg/dL (7-18)
--- NOTE | 2019-07-25 07:32 | NUR ---
NORCO GIVEN FOR PAIN LEVEL OF 10/10. ALSO GAVE PHENERGAN FOR NAUSEA. PT DENIES ANY OTHER NEEDS AT THIS TIME. CALL LIGHT IN REACH, NAD NOTED,WILL CONTINUE TO MONITOR.
[2019-07-25 08:00] VITALS: BP 113/56; BP 99/52
--- NOTE | 2019-07-25 09:28 | NUR ---
AM MEDS GIVEN AT THIS TIME. ALSO GAVE TORADOL FOR PAIN LEVEL OF 10/10. PT DENIES ANY OTHER NEEDS AT THIS TIME. CALL LIGHT IN REACH, NAD NOTED,WILL CONTINUE TO MONITOR.
--- NOTE | 2019-07-25 11:05 | NUR ---
ORTHOSTATIC BP FOLLOW. LYIN/59 HR OF 91 SITTIN/61, HR 93 STANDIN/59, HR 96
[2019-07-25 12:00] VITALS: BP 136/75
[2019-07-25 12:15] VITALS: Ht 165.1 cm; Wt 82.6 kg
--- NOTE | 2019-07-25 12:19 | NUR ---
4MG OF MORPHINE GIVEN FOR PAIN LEVEL OF 9/10. PT DENIES ANY OTHER NEEDS AT THIS TIME. CALL LIGHT IN REACH, NAD NOTED, WILL CONTINUE TO MONITOR.
[2019-07-25 16:00] VITALS: BP 131/84
--- NOTE | 2019-07-25 18:43 | NUR ---
MORPHINE GIVEN FOR PAIN LEVEL OF 10/10.
--- NOTE | 2019-07-25 19:00 | NUR ---
REPORT RECEIVED, WILL CONTINUE POC. PATIENT IS AAOX4, LYING SITTING UP IN BED. NO S/S OF DISTRESS OBSERVED, RR EVEN AND UNLABORED ON 2L PRN. PIV TO LT HAND INFUSING NS @ 100ML/HR. PATIENT REQUESTING PAIN MEDS AGAIN, DAY NURSE ADMINISTERED MORPHINE @ 1836 INFORMED PATIENT SHE COULD NOT HAVE IT AGAIN UNTIL 2235, PATIENT UNDERSTOOD. PATIENT DENIES FURTHER NEEDS AT THIS TIME. CL IN REACH, BED LOCKED AND LOWERED. WILL CTM.
[2019-07-25 20:00] VITALS: BP 122/74
--- NOTE | 2019-07-25 23:34 | NUR ---
PATIENT FOUND HAVING DARK BROWN LIQUID COMING FROM LEFT NOSTRIL. PATIENT O2 SAT WAS 87% 3L O2 NC APPLIED SATS CAME BACK WNL. SUHAIL CALDERON APN AT BEDSIDE ORDERS RECEIVED. NEW 20G PIV STARTED TO LEFT UPPER ARM X1 ATTEMPT. PATIENT TOLERATED WELL, GOOD BLOOD RETURN AND FLUSHED WITH EASE. CT HERE TO GET PATIENT FOR STAT CT.
--- NOTE | 2019-07-25 23:59 | NUR ---
PATIENT BACK FROM CT. PATIENT TO THE BATHROOM AND BACK TO BED. NO S/S OF DISTRESS OBSERVED, RR EVEN AND UNLABORED ON 3L O2 VIA NC. PATIENT SITTING UP IN BED ON HER CELL PHONE.
--- NOTE | 2019-07-26 02:19 | NUR ---
PATIENT C/O PAIN 10/10 PRN MORPHINE AND ZOFRAN ADMINISTERED PER ORDERS. ALSO ADMINISTERED IV SOLU-MEDROL PER ORDERS.
[2019-07-26 04:00] VITALS: BP 118/64
[2019-07-26 07:12] LABS: BASOPHILS 0 % (0-2); EOSINOPHILS 0 % (0-7); HEMATOCRIT 36.6 % (36.0-48.0); HEMOGLOBIN 11.4 g/dL (12-16); IMMATURE GRANULOCYTES 0.4 % (0-5); LYMPHOCYTES 6.3 % (15-50); MCH 31.8 pg (26.0-34.0); MCHC 31.1 g/dL (31.0-37.0); MCV 102.2 fL (80.0-100.0); MEAN PLATELET VOLUME 9.5 fL (7.4-10.4); MONOCYTES 0.9 % (2-11); NEUTROPHILS 92.4 % (40-80); PLATELET COUNT 351 10x3/uL (130-400); RBC 3.58 10x6/uL (4.00-5.40); RDW 14.3 % (11.5-14.5)
[2019-07-26 07:21] LABS: ANION GAP 13.9 mmol/L (8-16); CALCIUM 8.3 mg/dL (8.5-10.1); CARBON DIOXIDE 20.9 mmol/L (21.0-32.0); CREATININE - SERUM 0.9 mg/dL (0.6-1.3); POTASSIUM - SERUM 3.8 mmol/L (3.5-5.1); WBC 11.2 10x3/uL (4.8-10.8)
[2019-07-26 08:56] VITALS: BP 105/59
--- NOTE | 2019-07-26 10:47 | NUR ---
ASSESSMENT DONE. DENIES NEEDS
[2019-07-26 12:00] LABS: % SATURATION 37 % (15-55); IRON 97 ug/dl (35-150); TOTAL IRON BIND CAPACITY 259 ug/dl (260-445); UNSAT IRON BIND CAPACITY 162 ug/dl (150-375)
[2019-07-26 13:50] VITALS: BP 120/74
--- NOTE | 2019-07-26 14:16 | CN ---
PATIENT NAME:CONSTANZA SOLIS MEDICAL RECORD: [id number] : 58 LOCATION:[facility]iona D.2111 ADMIT DATE: 07/24/19 ACCOUNT: [id number] CONSULTING PHYSICIAN: OSMAN FOY MD REFERRING PHYSICIAN: CASSIDY FONG MD DATE OF CONSULTATION: 07/25/2019 HISTORY OF PRESENT ILLNESS: A 58-year-old female with no known history of coronary artery disease, has hypertension, smoking history, has been having intermittent chest pain past 2-3 weeks, had a severe episode yesterday accompanied by syncope/near syncope, all started during the same time. She has been having some cough, strong family history of coronary artery disease as well as hypertension, ongoing tobacco use. We are asked to see her concerning cardiovascular status. PAST MEDICAL HISTORY: Otherwise includes; 1. History of obstructive pulmonary disease. 2. Dyslipidemia. 3. Hypertension. 4. Gastroesophageal reflux disease. MEDICATIONS: Include Protonix 40 mg p.o. b.i.d., [place] 7.5/325 every 6 hours p.r.n., Symbicort 2 puffs b.i.d., Lasix 40 mg p.o. daily, Neurontin 400 b.i.d., Topamax 50 b.i.d., Celexa 20 b.i.d., Lopid 600 mg b.i.d., albuterol two every 4 hours p.r.n. ALLERGIES: None known. SOCIAL HISTORY: Smokes about a pack a day, nondrinker. Is able to care of all her ADLs, was trying to walk before current illness. REVIEW OF SYSTEMS: The patient reports easy bruising but reports no swollen glands. The patient reports no fever, no night sweats, no significant weight gain, no significant weight loss. No significant exercise tolerance. The patient reports no dry eyes, no irritation, no vision change. Patient reports no difficulty hearing and no ear pain. Patient reports no frequent nose bleeds or nose and sinus problems. Patient reports on arm pain on exertion. No shortness of breath while lying down. No history of heart murmur. Patient reports no cough, no wheezing or coughing up blood. Patient reports no abdominal pain, no vomiting. Normal appetite. No diarrhea and not vomiting blood. No nausea and no constipation. Patient reports no incontinence. No difficulty urinating. No hematuria. No increased frequency. Patient reports no muscle aches. No weakness, no arthralgias, no back pain. No swelling of the extremities. Patient reports no abnormal mole, no jaundice, no rashes. Reports no loss of consciousness. No weakness and no numbness. No seizures, dizziness, or headaches. The patient reports no depression, no sleep disturbance, feeling safe in a relationship and no alcohol abuse. Patient reports on fatigue. Reports no runny nose or sinus pressure. No itching, no hives, and no frequent sneezing. PHYSICAL EXAMINATION: GENERAL: Pleasant female in no acute distress, appears stated age. VITAL SIGNS: Blood pressure 116/72, pulse 74 and regular. HEENT: Normocephalic, atraumatic. NECK: Questionable left carotid bruit. CONSULT REPORT [id number] CONSTANZA SOLIS HEART: Regular, II/ systolic ejection murmur. LUNGS: Slightly prolonged expiratory phase with few expiratory wheezes. ABDOMEN: Soft, nontender. EXTREMITIES: Pulses 2+, 1+ edema. IMPRESSION: Acute coronary syndrome. Symptomatically, she describes amaurosis type symptomatology and left arm tingling on occasion as well, which acclerated today. PLAN: For angiography, 4-vessel arteriography in the a.m. TRANSINT:[id number] Voice Confirmation ID: [id number] DOCUMENT ID: [id number] OSMAN FOY MD at 1416 CC: [id number] DICTATION DATE: 07/25/19827 PLANT AND EQUIPMENT WORKER: 07/25/[address] [facility] IN [place] [id number] [place] [id number]
--- NOTE | 2019-07-26 15:18 | NUR ---
I have reviewed this patient and I concur with the Shift Assessment completed by the Licensed Practical Nurse today this shift.
[2019-07-26 19:23] VITALS: BP 105/60
--- NOTE | 2019-07-26 19:38 | NUR ---
REPORT RECEIVED, WILL CONTINUE POC. PATIENT IS AAOX4, LYING IN SEMI-FOWLERS POSITION. NO S/S OF DISTRESS OBSERVED RR EVEN AND UNLABORED ON 3L O2 VIA NC. RT AT BEDSIDE. PATIENT DENIES NEEDS AT THIS TIME. CL IN REACH, BED LOCKED AND LOWERED. WILL CTM.
[2019-07-26 20:00] VITALS: BP 102/53
--- NOTE | 2019-07-26 22:20 | NUR ---
PATIENT C/O PAIN 10/10 WENT TO ADMINISTERED PRN MORPHINE AND ZOFRAN BUT IV WAS INFILTRATED. DC'D LT FA IV WITH CATH TIP INTACT, 2X2 AND TAPE APPLIED. STARTED NEW IV TO LEFT WRIST WITH 22G X 2 ATTEMPTS. GOOD BLOOD RETURN AND FLUSHED WITH EASED. PATIENT TOLERATED WELL.
[2019-07-27 04:00] VITALS: BP 113/71
--- NOTE | 2019-07-27 07:34 | NUR ---
ASSESSMENT DONE. DENIES NEEDS
--- NOTE | 2019-07-27 08:08 | OP ---
PATIENT NAME: CONSTANZA SOLIS MEDICAL RECORD: [id number] :58 LOCATION:D.M2 D.1 ADMISSION DATE:07/24/19 SURGEON: OSMAN FOY MD DATE OF OPERATION: 07/26/2019 PROCEDURE: Left heart catheterization, selective coronary angiography, right femoral artery approach. CATHETERS: A 5-Setswana sheath, 5/4 left and right Karlene, 5/4 pig. The procedure was well tolerated. The patient was returned to del angel. FINDINGS: Left ventriculography in 30-degree VELA view: Normal wall motion and normal systolic function. CORONARY ANATOMY: LEFT MAIN: Left main is free of disease. LAD: LAD has about 50% stenosis takeoff of first septal, no flow restrictive. CIRCUMFLEX: Medium size circumflex, free of disease. RIGHT CORONARY ARTERY: Large, dominant artery, free of disease. IMPRESSION: Normal LV systolic function, early atherosclerotic disease in LAD, otherwise no significant stenosis. FOUR-VESSEL ARTERIOGRAPHY: Using indwelling sheath and the right diagnostic catheter, first the right common carotid was selectively engaged. This is smooth-walled vessel, free of disease. The right external carotid shows luminal irregularities, no flow obstructive stenosis. Right internal carotid smooth-walled vessel, free of disease. Left common carotid was selectively engaged. This shows some moderate luminal irregularities, no significant stenosis as well as some tortuosity. The left external carotid is widely patent without significant stenosis. Left internal carotid widely patent without significant stenosis. OVERALL IMPRESSION: No significant coronary artery disease. No significant carotid artery disease, normal left ventricular function. TRANSINT:[id number] Voice Confirmation ID: [id number] DOCUMENT ID: [id number] OSMAN FOY MD at 0808 CC: [id number] DICTATION DATE: 07/26/19 1310 FABRICATION TECHNICIAN: 07/26/19 1455 ADM IN [place] [id number] [place] [address]
[2019-07-27 10:17] VITALS: BP 117/65
[2019-07-27] MEDS ORDERED: MIRALAX17 GM PO (10:26)
--- NOTE | 2019-07-27 11:00 | NUR ---
I have reviewed this patient and I concur with the Shift Assessment completed by the Licensed Practical Nurse today this shift.
--- NOTE | 2019-07-27 11:05 | NUR ---
DC GIVEN TO PT
--- NOTE | 2019-07-27 11:33 | NUR ---
DC HOME PER PERSONAL CAR
--- NOTE | 2019-07-30 11:51 | MORECARE ---
CASE MANAGEMENT DISCHARGE SUMMARY PATIENT: CONSTANZA SOLIS UNIT: [id number] ADM DATE: 07/24/19 AGE: 58 : 58 SEX: F ROOM/BED: D.3671 AUTHOR: DISHA OVIEDO PHYSICIAN: REFERRING PHYSICIAN: CASSIDY FONG MD DATE OF SERVICE: 07/30/19 Discharge Plan Patient Name: CONSTANZA SOLIS Facility: [facility]:[place] : 1960 Planned Disposition: Anticipated Discharge Date: Discharge Date: 07/27/2019 Expected LOS: 0 Initial Reviewer: [email or web address] Initial Review Date: 07/30/2019 Generated: 07/30/19 12:51 pm Comments DCP- Discharge Planning Updated by [email or web address]: Sosa Shaffer on 07/27/19 4:[address] RA sat 90%, walking RA 94%. Patient Name: CONSTANZA SOLSI Page 52879 at 1151 All edits/amendments must be made on the electronic document DICTATION DATE: 07/30/19 1151 PATROL SUPERVISOR: AARTI 07/30/19 1151 RPT#: [id number] DC DATE:07/27/19 STATUS: DIS IN [facility] [address] [place] [address] END OF REPORT
== END 2019-07-27 11:34 | disposition home or self-care (01) | DRG 286 ==
LOC: D.ER 10:33 → D.M2 12:59
PROVIDERS: Family Medicine; Internal Medicine Gastroenterology; Internal Medicine Interventional Cardiology; ADMIT Internal Medicine Nephrology; ATTEND Internal Medicine Nephrology
PROC: 4A023N7 Measurement of Cardiac Sampling and Pressure, Left Heart, Percutaneous Approach (ICD-10-PCS; 2019-07-26)
PROC: B3151ZZ Fluoroscopy of Bilateral Common Carotid Arteries using Low Osmolar Contrast (ICD-10-PCS; 2019-07-26)
PROC: B3181ZZ Fluoroscopy of Bilateral Internal Carotid Arteries using Low Osmolar Contrast (ICD-10-PCS; 2019-07-26)
PROC: B31C1ZZ Fluoroscopy of Bilateral External Carotid Arteries using Low Osmolar Contrast (ICD-10-PCS; 2019-07-26)
PROC: B2111ZZ Fluoroscopy of Multiple Coronary Arteries using Low Osmolar Contrast (ICD-10-PCS; principal; 2019-07-26 14:00)
PROC: B2151ZZ Fluoroscopy of Left Heart using Low Osmolar Contrast (ICD-10-PCS; 2019-07-26 14:00)
DX: R55 Syncope and collapse (principal); J18.9 Pneumonia, unspecified organism; F17.203 Nicotine dependence unspecified, with withdrawal; I24.9 Acute ischemic heart disease, unspecified; E87.6 Hypokalemia; D75.89 Other specified diseases of blood and blood-forming organs; G43.909 Migraine, unspecified, not intractable, without status migrainosus; F32.9 Major depressive disorder, single episode, unspecified; J43.9 Emphysema, unspecified; K44.9 Diaphragmatic hernia without obstruction or gangrene; K57.90 Diverticulosis of intestine, part unspecified, without perforation or abscess without bleeding; K59.00 Constipation, unspecified; K21.9 Gastro-esophageal reflux disease without esophagitis; R04.0 Epistaxis

== ENCOUNTER 2019-07-29 16:39 | Inpatient (IN) | payer MEDICARE, MEDICAID ==
[~2019-07-29] VITALS: Ht 165.1 cm; Wt 84.6 kg
[~2019-07-29 16:39] MED LIST changes: +HYDROCODON-ACE1 EAC2 PO; +LASIX40 MG PO; +MIRALAX17 GM PO; +SYMBICORT 16010.2 GM INH
[2019-07-29 17:51] LABS: HEMATOCRIT 37.6 % (36.0-48.0); HEMOGLOBIN 12.5 g/dL (12-16); MCH 32.3 pg (26.0-34.0); MCHC 33.2 g/dL (31.0-37.0); MCV 97.2 fL (80.0-100.0); MEAN PLATELET VOLUME 9.3 fL (7.4-10.4); PLATELET COUNT 304 10x3/uL (130-400); RBC 3.87 10x6/uL (4.00-5.40); RDW 14.5 % (11.5-14.5); WBC 22.8 10x3/uL (4.8-10.8)
[2019-07-29 18:02] LABS: INR 1.17 (0.85-1.17); PROTIME 14.9 SECONDS (11.6-15.0)
[2019-07-29 18:03] LABS: APTT 41.6 SECONDS (22.8-39.4)
[2019-07-29 18:05] LABS: LYMPHOCYTES 6 % (15-50); NEUTROPHILS 94 % (40-80); PLATELET ESTIMATE NORMAL
[2019-07-29 18:17] LABS: ALKALINE PHOSPHATASE 168 U/L (30-120); ALT (SGPT) 10 U/L (10-68); BILIRUBIN - TOTAL 0.33 mg/dL (0.2-1.3); CALC OSMOLALITY 270 mosm/kg (275-300); CALCIUM 8.5 mg/dL (8.5-10.1); CARBON DIOXIDE 26.4 mmol/L (21.0-32.0); CHLORIDE - SERUM 97 mmol/L (98-107); CKMB 0.8 U/L (0.0-3.6); CREATINE KINASE 58 UL (21-215); CREATININE - SERUM 1.2 mg/dL (0.6-1.3); FERRITIN 159 ng/mL (3-244); GLUCOSE 128 mg/dL (74-106); PRO BNP 327 pg/mL (0-125); SODIUM 135 mmol/L (136-145); TROPONIN-I < 0.017 ng/mL (0.000-0.060); UREA NITROGEN 11 mg/dL (7-18); eGFR NON AFRICAN AMERICAN 49 mL/min (90-120)
[2019-07-29 18:37] LABS: C-REACTIVE PROTEIN 30.6 mg/dL (0.0-0.9)
[2019-07-29 18:38] LABS: ALBUMIN 2.9 g/dL (3.4-5.0)
--- NOTE | 2019-07-29 18:39 | NUR ---
K+ OF 2.2. CRP OF 30.6 CALLED BY [facility] AT THIS TIME. NOTIFIED EDP
[2019-07-29 18:40] LABS: POTASSIUM - SERUM 2.2 mmol/L (3.5-5.1)
[2019-07-29 18:43] VITALS: BP 101/58
--- NOTE | 2019-07-29 18:54 | NUR ---
PT SITTING UP IN BED. NO DISTRESS NOTED. COLOR WNL FOR RACE. RESPIRATIONS ARE EVEN AND UNLABORED. IV PATENT AND INFUSING ZOSYN AT THIS TIME. NO SIGNS OF INFILTRATION. PT VOICES NO COMPLAINTS AT THIS TIME. WILL CONTINUE TO MONITOR.
[2019-07-29 19:00] VITALS: BP 88/53
--- NOTE | 2019-07-29 19:05 | NUR ---
PT SITTING UPRIGHT IN BED. PT DENIES NEEDS AT THIS TIME. PT UPDATED ON PLAN OF CARE. NO S/S OF ACUTE DISTRESS NOTED,.
[2019-07-29 19:30] VITALS: BP 94/56
--- NOTE | 2019-07-29 20:04 | NUR ---
PT SITTING ON BED. NO S/S OF ACUTE DISTRESS NOTED. PT UPDATED ON PLAN OF CARE.
[2019-07-29 21:41] VITALS: BP 126/73; BMI 33.0
--- NOTE | 2019-07-29 23:27 | NUR ---
RECEIVED REPORT FROM RUSSELL GUADALUPE IN ER. ARRIVED TO FLOOR ON STRETCHER. TRANSFERED SELF TO BED. ALERT AND ORIENTED X4. IV TO RIGHT HAND WITH LR BOLUSING. REPORTED TO GIVE A TOTAL OF 3 BAGS OF LR BOLUS. SECOND BAG COMPLETED AND 3RD BAG STARTED. PT STATES SHE SMOKES AND WOULD LIKE TO HAVE A PATCH. ASLEEP AT THIS TIME . ABLE TO AROUSE WITH VERBAL STIMULI. FALLS BACK ASLEEP QUICKLY. NO EDEMA OBSERVED. ASSESSMENT COMPLETED.
[2019-07-30] VITALS: BP 92/58
[2019-07-30 05:01] VITALS: BP 117/74
[2019-07-30 05:57] LABS: ALBUMIN 2.4 g/dL (3.4-5.0); ANION GAP 12.4 mmol/L (8-16); BILIRUBIN - TOTAL 0.3 mg/dL (0.2-1.3); CALCIUM 8.2 mg/dL (8.5-10.1); CARBON DIOXIDE 26.4 mmol/L (21.0-32.0); PROTEIN - SERUM 6.4 g/dL (6.4-8.2)
[2019-07-30 06:30] LABS: POTASSIUM - SERUM 2.8 mmol/L (3.5-5.1)
--- NOTE | 2019-07-30 07:03 | NUR ---
SPOKE TO PT ON THE PHONE IN ROOM, SHE WAS ALERT AND ORIENTED, DESCRIBES NO PROBLEMS GETTING AROUND BY HERSELF. C/O THE ROOM BEING COLD AND ASKS THAT I BRING IN AN EXTRA BLANKET AND FIX HER THERMOSTAT WHEN I COME IN WITH BREAKFAST. WILL ACCOMIDATE. NO OTHER COMPLAINTS OR OCNCERNS AT THIS TIME. CL IN REACH, SRX2.
[2019-07-30 07:49] LABS: HEMATOCRIT 36.6 % (36.0-48.0); MCH 32.3 pg (26.0-34.0); MCHC 32.8 g/dL (31.0-37.0); MCV 98.7 fL (80.0-100.0); MEAN PLATELET VOLUME 9.9 fL (7.4-10.4); PLATELET COUNT 409 10x3/uL (130-400); RBC 3.71 10x6/uL (4.00-5.40); RDW 14.4 % (11.5-14.5); WBC 20.3 10x3/uL (4.8-10.8)
[2019-07-30 08:32] VITALS: BP 119/73
--- NOTE | 2019-07-30 09:08 | NUR ---
ADMINISTERED MEDICATIONS, NO DIFFICULTY SWALLOWING. PT STATES SHE HAS CHRONIC NAUSIA ISSUES. NO COMPLAINTS OR CONCERNS AT THIS TIME. CL IN REACH, SRX2. PT GIVEN DESK NUMBER.
[2019-07-30 11:44] LABS: LYMPHOCYTES 11 % (15-50); MONOCYTES 5 % (2-11); NEUTROPHILS 84 % (40-80); PLATELET ESTIMATE INCREASED; PLATELET MORPHOLOGY PLT CLUMPS PRESENT
[2019-07-30 11:45] LABS: ANISOCYTOSIS OCC; BURR CELLS OCC; CRENATED CELLS OCC; SMUDGE CELLS OCC
[2019-07-30 12:43] VITALS: Ht 165.1 cm; Wt 84.6 kg
--- NOTE | 2019-07-30 16:52 | NUR ---
COVID RESULTS COME BACK NEGATIVE. CALLED [facility] AND LEFT A MESSAGE, WAITING ON HER TO CLEAR US.
--- NOTE | 2019-07-30 17:13 | MORECARE ---
CASE MANAGEMENT DISCHARGE SUMMARY PATIENT: CONSTANZA SOLIS UNIT: [id number] ADM DATE: 07/29/19 AGE: 58 : 58 SEX: F ROOM/BED: D.2569 AUTHOR: DISHA OVIEDO PHYSICIAN: REFERRING PHYSICIAN: CASSIDY FONG MD DATE OF SERVICE: 07/30/19 Discharge Plan Patient Name: CONSTANZA SOLIS Facility: [facility]:[place] : 1960 Planned Disposition: Home or Self Care Anticipated Discharge Date: Discharge Date: Expected LOS: Initial Reviewer: [email or web address] Initial Review Date: 07/29/2019 Generated: 07/30/19 6:12 pm Patient Name: CONSTANZA SOLIS Page [phone] at 1713 All edits/amendments must be made on the electronic document DICTATION DATE: 07/30/191711 POT FEEDER: AARTI 07/30/191711 RPT#: [id number] DC DATE: STATUS: ADM IN [facility] [address] [place] [address] END OF REPORT
--- NOTE | 2019-07-30 17:21 | MORECARE ---
CASE MANAGEMENT DISCHARGE SUMMARY PATIENT: CONSTANZA SOLIS UNIT: [id number] ADM DATE: 07/29/19 AGE: 58 : 58 SEX: F ROOM/BED: D.2599 AUTHOR: DISHA OVIEDO PHYSICIAN: REFERRING PHYSICIAN: CASSIDY FONG MD DATE OF SERVICE: 07/30/19 Discharge Plan Patient Name: CONSTANZA SOLIS Facility: [facility]:[place] : 1960 Planned Disposition: Home or Self Care Anticipated Discharge Date: Discharge Date: Expected LOS: Initial Reviewer: [email or web address] Initial Review Date: 07/29/2019 Generated: 07/30/19 6:20 pm DCPIA - Discharge Planning Initial Assessment Updated by [id number]: Kate Farley on 07/30/19 5:19 pm * Is the patient Alert and Oriented? Yes * How many steps to enter\exit or inside your home? 0/0 * PCP NELY * Pharmacy [facility] * Preadmission Environment Assisted Living * Facility Name [facility] * ADLs Partial Dependent * Partial ADLs (Assistance needed) Medication Management * Equipment Bedside Commode Cane Elevated Tol[place] Seat Rolling Walker Shower Chair Walker * List name and contact numbers for known caregivers / representatives who currently or will assist patient after discharge: MIKE RODRIGUEZ [phone] * Community resources currently utilized Assisted Living * Please name any agencies selected above. [facility] * Additional services required to return to the preadmission environment? No * Can the patient safely return to the preadmission environment? Yes * Has this patient been hospitalized within the prior 30 days at any hospital? No Last DP export: 07/30/19 4:13 p Patient Name: CONSTANZA SOLIS Page [phone] at 1721 All edits/amendments must be made on the electronic document DICTATION DATE: 07/30/191719 SENIOR ANIMAL TRAINER: AARTI 07/30/191719 RPT#: [id number] DC DATE: STATUS: ADM IN [facility] [address] [place] [address] END OF REPORT
--- NOTE | 2019-07-30 17:29 | MORECARE ---
CASE MANAGEMENT DISCHARGE SUMMARY PATIENT: CONSTANZA SOLIS UNIT: [id number] ADM DATE: 07/29/19 AGE: 58 : 58 SEX: F ROOM/BED: D.5840 AUTHOR: DISHA OVIEDO PHYSICIAN: REFERRING PHYSICIAN: CASSIDY FONG MD DATE OF SERVICE: 07/30/19 Discharge Plan Patient Name: CONSTANZA SOLIS Facility: [facility]:[place] : 1960 Planned Disposition: Home or Self Care Anticipated Discharge Date: Discharge Date: Expected LOS: Initial Reviewer: [email or web address] Initial Review Date: 07/29/2019 Generated: 07/30/19 6:29 pm Comments DCP- Discharge Planning Updated by [email or web address]: Kate Farley on 07/30/19 4:[address] Patient Name: CONSTANZA SOLIS Admission Status: ER Accout number: [id number] Admission Date: 07-29-2019 : 1960 Admission Diagnosis:PNEUMONIA, UNSPECIFIED ORGANISM Attending: CASSIDY FONG Current LOS: 1 Anticipated DC Date: Planned Disposition: Home or Self Care Primary Insurance: [facility] [employer] Discharge Planning Comments: CM met with patient to complete initial dc planning assessment. CM educated patient on the CM role and verbal consent given by patient to complete assessment. CM verified patient's address, phone number, and emergency contact phone numbers. Patient lives at home in an assisted living facility at [facility]. Patient currently is waiting on an aid or senior helper at the assisted living facility. Pt wishes to resume staying [facility] [place], and feels this is a safe dc plan. Pt states she uses a cane, walker, bedside potty and a shower chair. States she has COPD, but is not on home O2. Currently pt is requiring o2 at 2.5 liters. CM spoke with pt about the possibility of requiring home o2.RYAN form signed for Aaliyah MORELAND, and declenation signed for any HH provider. Signed form placed in chart and signed form given to patient. Patient denied further known discharge needs at this time. . Transportation provider at discharge will be Donya at [phone] . CM will continue to follow and will assist as needed with dc plans/needs. DC IMM delivered, explained, signed by the patient, and placed in his chart. Signed form also left with patient. Recreational Facilities Motel Manager: Kate Farley DCPIA - Discharge Planning Initial Assessment Updated by [id number]: Kate Farley on 07/30/19 5:19 pm * Is the patient Alert and Oriented? Yes * How many steps to enter\exit or inside your home? 0/0 * PCP NELY * Pharmacy [facility] * Preadmission Environment Assisted Living * Facility Name [facility] * ADLs Partial Dependent * Partial ADLs (Assistance needed) Medication Management * Equipment Bedside Commode Cane Elevated [place] Seat Rolling Walker Shower Chair Walker * List name and contact numbers for known caregivers / representatives who currently or will assist patient after discharge: DONYA RODRIUGEZ [phone] * Community resources currently utilized Assisted Living * Please name any agencies selected above. [facility] * Additional services required to return to the preadmission environment? No * Can the patient safely return to the preadmission environment? Yes * Has this patient been hospitalized within the prior 30 days at any hospital? No Coverage Notice Reviewer: [id number] - Kate Farley Notice Issued Date-Time: 07/30/2019 14:40 Notice Type: IM Discharge Notice Notice Delivered To: Patient Relationship to Patient: Optometry Doctor Name: Delivery Method: PHONE - Phone Jaimie Days: Prior Verbal Notification: Recipient Understood Notice: Yes Recipient Signature: Yes Med Rec Note Co-signed by Attending: Coverage Notice Comment: DC IMM delivered, explained, signed by the patient, and placed in his chart. Signed form also left with patient. Last DP export: 07/30/19 4:21 p Patient Name: CONSTANZA SOLIS Page 62085 at 1729 All edits/amendments must be made on the electronic document DICTATION DATE: 07/30/191728 TRAFFIC OPERATOR: AARTI 07/30/191728 RPT#: [id number] DC DATE: STATUS: ADM IN [facility] [address] [place] [address] END OF REPORT
--- NOTE | 2019-07-30 19:27 | NUR ---
PT LYING IN BED. HEAD OF BED IS ELEVATED. RESPIRATIONS EVEN AND UNLABORED. CALL LIGHT WITH IN REACH. PT [id number] TO CALL FOR HELP WHEN NEEDED. WILL CONTINUE TO MONITOR
[2019-07-30 20:48] VITALS: BP 143/79
[2019-07-31] VITALS (7 sets, daily range): BP systolic 104–144; BP diastolic 56–79
--- NOTE | 2019-07-31 02:58 | NUR ---
PT RESTING QUIETLY WITH EYES CLOSED. EASILY AWAKEN WITH VOICE STIMULATION. NO SIGNS OF DISTRESS NOTED. PT HAS NO COMPLAINTS AT THIS TIME. CALL LIGHT AND OTHER PERSONAL ITEMS WITH IN REACH. WILL CONTINUE TO MONITOR
--- NOTE | 2019-07-31 03:26 | NUR ---
PT REFUSES IV. SUHAIL DAVIS APN NOTIFIED. PT STATES THAT DR. JIMÉNEZ SAYS SHE CAN HAVE A PICC LINE. CALL LIGHT WITH IN REACH
[2019-07-31 05:23] LABS: HEMATOCRIT 35.4 % (36.0-48.0); HEMOGLOBIN 11.4 g/dL (12-16); MCH 31.5 pg (26.0-34.0); MCHC 32.2 g/dL (31.0-37.0); MCV 97.8 fL (80.0-100.0); MEAN PLATELET VOLUME 9.5 fL (7.4-10.4); NEUTROPHILS 83.1 % (40-80); PLATELET COUNT 333 10x3/uL (130-400); RBC 3.62 10x6/uL (4.00-5.40); RDW 14.8 % (11.5-14.5)
[2019-07-31 05:30] LABS: WBC 13.9 10x3/uL (4.8-10.8)
[2019-07-31 05:35] LABS: ALBUMIN 2.7 g/dL (3.4-5.0); BILIRUBIN - TOTAL 0.22 mg/dL (0.2-1.3); CALCIUM 8.3 mg/dL (8.5-10.1); CARBON DIOXIDE 29.4 mmol/L (21.0-32.0); MAGNESIUM - SERUM 1.8 mg/dL (1.8-2.4); PHOSPHOROUS 3.2 mg/dL (2.5-4.9); PROTEIN - SERUM 6.7 g/dL (6.4-8.2); VANCOMYCIN - TROUGH 8.2 ug/mL (10.0-20.0)
[2019-07-31 05:37] LABS: POTASSIUM - SERUM 2.4 mmol/L (3.5-5.1)
--- NOTE | 2019-07-31 15:35 | NUR ---
I HAVE REVIEWED THE CHART AND AGREE WITH THE ASSESSMENT COMPLETED BY THE JAVASCRIPT FRONT END DEVELOPER FOR THIS SHIFT. PATIENT IS LYING IN BED WITH ATTENTION TOWARD TELEVISION. NO DISTRESS. CALL LIGHT WITHIN REACH.
[2019-07-31 17:32] LABS: BILIRUBIN NEGATIVE (NEGATIVE); GLUCOSE NEGATIVE (NEGATIVE); KETONE NEGATIVE (NEGATIVE); NITRITE NEGATIVE (NEGATIVE); UROBILINOGEN NORMAL (NORMAL)
--- NOTE | 2019-07-31 19:30 | NUR ---
PT IN BED, AAO X 3, RESP EVEN AND UNLABORED. NO DISTRESS NOTED, CL IN REACH, SR UP X 2.
--- NOTE | 2019-08-01 00:51 | NUR ---
I have reviewed this patient and I concur with the Shift Assessment completed by the Licensed Practical Nurse today this shift.
[2019-08-01 03:47] LABS: BASOPHILS 0.1 % (0-2); HEMATOCRIT 33.3 % (36.0-48.0); HEMOGLOBIN 10.6 g/dL (12-16); IMMATURE GRANULOCYTES 0.7 % (0-5); LYMPHOCYTES 17.8 % (15-50); MCH 31.5 pg (26.0-34.0); MCHC 31.8 g/dL (31.0-37.0); MCV 99.1 fL (80.0-100.0); MEAN PLATELET VOLUME 9.2 fL (7.4-10.4); MONOCYTES 9.3 % (2-11); NEUTROPHILS 70.1 % (40-80); PLATELET COUNT 336 10x3/uL (130-400); RBC 3.36 10x6/uL (4.00-5.40); RDW 14.7 % (11.5-14.5); WBC 9.7 10x3/uL (4.8-10.8)
[2019-08-01 03:54] LABS: ALBUMIN 2.6 g/dL (3.4-5.0); BILIRUBIN - TOTAL 0.38 mg/dL (0.2-1.3); CALCIUM 7.8 mg/dL (8.5-10.1); CARBON DIOXIDE 29.2 mmol/L (21.0-32.0); CREATININE - SERUM 0.9 mg/dL (0.6-1.3); MAGNESIUM - SERUM 1.6 mg/dL (1.8-2.4); PROTEIN - SERUM 6.5 g/dL (6.4-8.2)
[2019-08-01 03:59] LABS: ANION GAP 12.3 mmol/L (8-16); POTASSIUM - SERUM 3.5 mmol/L (3.5-5.1)
[2019-08-01 04:52] VITALS: BP 138/81
[2019-08-01 07:12] LABS: IMMUNOGLOBULIN A 246 mg/dL (87-352); IMMUNOGLOBULIN G 598 mg/dL (586-1602)
[2019-08-01 08:58] VITALS: BP 149/84
--- NOTE | 2019-08-01 12:59 | NUR ---
I have reviewed this patient and I concur with the Shift Assessment completed by the Licensed Practical Nurse today this shift.
[2019-08-01 13:21] VITALS: BP 143/84
[2019-08-01 18:53] VITALS: BP 137/74
--- NOTE | 2019-08-01 19:30 | NUR ---
PT IN BED, AAO X 3, RESP EVEN AND UNLABORED. NO DISTRESS NOTED, CL IN REACH, SR UP X 2.
[2019-08-01 20:00] VITALS: BP 121/70
[2019-08-02] VITALS: BP 95/47
[2019-08-02 04:56] LABS: BASOPHILS 0.2 % (0-2); EOSINOPHILS 1.6 % (0-7); HEMATOCRIT 34.8 % (36.0-48.0); HEMOGLOBIN 10.8 g/dL (12-16); IMMATURE GRANULOCYTES 1.2 % (0-5); LYMPHOCYTES 14.2 % (15-50); MEAN PLATELET VOLUME 9.2 fL (7.4-10.4); MONOCYTES 7.4 % (2-11); NEUTROPHILS 75.4 % (40-80); PLATELET COUNT 344 10x3/uL (130-400); RBC 3.48 10x6/uL (4.00-5.40); RDW 14.7 % (11.5-14.5); WBC 10.4 10x3/uL (4.8-10.8)
[2019-08-02 05:10] LABS: ALBUMIN 2.5 g/dL (3.4-5.0); ANION GAP 16.9 mmol/L (8-16); BILIRUBIN - TOTAL 0.31 mg/dL (0.2-1.3); CALCIUM 8.3 mg/dL (8.5-10.1); CARBON DIOXIDE 25.8 mmol/L (21.0-32.0); MAGNESIUM - SERUM 1.8 mg/dL (1.8-2.4); POTASSIUM - SERUM 3.7 mmol/L (3.5-5.1); PROTEIN - SERUM 6.5 g/dL (6.4-8.2); VANCOMYCIN - TROUGH 15.6 ug/mL (10.0-20.0)
[2019-08-02 09:32] VITALS: BP 110/68
--- NOTE | 2019-08-02 12:43 | NUR ---
I have reviewed this patient and I concur with the Shift Assessment completed by the Licensed Practical Nurse today this shift.
[2019-08-02] MEDS ORDERED: IPRAT-ALBUT 0.5-3 ML UPD (12:46)
[2019-08-02] MEDS ORDERED: SYMBICORT 16010.2 GM INH (12:47)
[2019-08-02] MEDS ORDERED: ALBUTEROL SULF8.5 GM INH (12:47)
--- NOTE | 2019-08-02 13:24 | NUR ---
Nutrition Follow-up: Ate 100% of breakfast this AM. Noted plans to d/c home soon. Diet: Cardiac PO intake: 79% avg x 7 meals Wt: 186.2# (07/31); 198# (07/28) Labs noted: Glu 111, Ca 8.3, Alb 2.5 Meds noted: Protonix, Phenergan, Carafate, Lasix -Monitor wt; noted daily wts ordered. -RD following.
[2019-08-02 13:39] VITALS: BP 144/72
--- NOTE | 2019-08-02 16:07 | NUR ---
PAGE INTO DOUG CARD APN TO CLARIFY DISCHARGE MEDICATIONS THERE IS ONLY 3 MEDS ON SHEET. NO HOME MEDICATIONS. AWAITING CALL BACK.
--- NOTE | 2019-08-02 16:15 | NUR ---
NO ANSWER. PAGE AGAIN INTO DOUG CARD APN.
--- NOTE | 2019-08-02 16:22 | NUR ---
DOUG CARD APN TO CALL BACK.
[2019-08-02] MEDS ORDERED: OMNICEF300 MG PO (16:25)
[2019-08-02] MEDS ORDERED: DOXYCYCLINE HY100 M2 PO (16:25)
--- NOTE | 2019-08-02 16:47 | NUR ---
PT DISCHARGED HOME VIA WHEELCHAIR WITH FAMILY. PIV REMOVED WITH CATHETER TIP FULLY INTACT. TELEMETRY REMOVED AND RETURNED. PT SIGNED PROPER DISCHARGE INSTRUCTIONS AND REMOVED ALL VALUABLES FROM THE ROOM.
[2019-08-02 18:08] LABS: IMMUNOGLOBULIN E 17 IU/mL (6-495)
[2019-08-03 03:07] LABS: IGG SUBCLASS 1 391 mg/dL (248-810); IGG SUBCLASS 2 63 mg/dL (130-555); IGG SUBCLASS 3 31 mg/dL (15-102); IGG SUBCLASS 4 24 mg/dL (2-96); IGGS - IGG SERUM 618 mg/dL (586-1602)
--- NOTE | 2019-08-03 09:10 | MORECARE ---
CASE MANAGEMENT DISCHARGE SUMMARY PATIENT: CONSTANZA SOLIS UNIT: [id number] ADM DATE: 07/29/19 AGE: 58 : 58 SEX: F ROOM/BED: D.7656 AUTHOR: PREETDOC PHYSICIAN: REFERRING PHYSICIAN: CASSIDY FONG MD DATE OF SERVICE: 08/03/19 Discharge Plan Patient Name: CONSTANZA SOLIS Facility: [facility]:[place] : 1960 Planned Disposition: Home or Self Care Anticipated Discharge Date: Discharge Date: 08/02/2019 Expected LOS: Initial Reviewer: [email or web address] Initial Review Date: 07/29/2019 Generated: 08/03/19 10:10 am Comments DCP- Discharge Planning Updated by [email or web address]: Kate Farley on 07/30/19 4:[address] Patient Name: CONSTANZA SOLIS Admission Status: ER Accout number: [id number] Admission Date: 07-29-2019 : 1960 Admission Diagnosis:PNEUMONIA, UNSPECIFIED ORGANISM Attending: CASSIDY FONG Current LOS: 1 Anticipated DC Date: Planned Disposition: Home or Self Care Primary Insurance: [facility] [employer] Discharge Planning Comments: CM met with patient to complete initial dc planning assessment. CM educated patient on the CM role and verbal consent given by patient to complete assessment. CM verified patient's address, phone number, and emergency contact phone numbers. Patient lives at home in an assisted living facility at [facility]. Patient currently is waiting on an aid or senior helper at the assisted living facility. Pt wishes to resume staying at [facility] at [facility], and feels this is a safe dc plan. Pt states she uses a cane, walker, bedside potty and a shower chair. States she has COPD, but is not on home O2. Currently pt is requiring o2 at 2.5 liters. CM spoke with pt about the possibility of requiring home o2.RYAN form signed for Aaliyah MORELAND, and declenation signed for any HH provider. Signed form placed in chart and signed form given to patient. Patient denied further known discharge needs at this time. . Transportation provider at discharge will be Donya at [phone] . CM will continue to follow and will assist as needed with dc plans/needs. DC IMM delivered, explained, signed by the patient, and placed in his chart. Signed form also left with patient. Direct Support Worker: Kate Farley DCPIA - Discharge Planning Initial Assessment Updated by [email or web address]: Kate Farley on 07/30/19 5:19 pm * Is the patient Alert and Oriented? Yes * How many steps to enter\exit or inside your home? 0/0 * PCP NELY * Pharmacy [facility] * Preadmission Environment Assisted Living * Facility Name [facility] [place] [place] * ADLs Partial Dependent * Partial ADLs (Assistance needed) Medication Management * Equipment Bedside Commode Cane Elevated Tol[place] Seat Rolling Walker Shower Chair Walker * List name and contact numbers for known caregivers / representatives who currently or will assist patient after discharge: DONYA RODRIGUEZ [phone] * Community resources currently utilized Assisted Living * Please name any agencies selected above. [facility] [place] [facility] * Additional services required to return to the preadmission environment? No * Can the patient safely return to the preadmission environment? Yes * Has this patient been hospitalized within the prior 30 days at any hospital? No Coverage Notice Reviewer: [email or web address] Shree Farley Notice Issued Date-Time: 07/30/2019 14:40 Notice Type: IM Discharge Notice Notice Delivered To: Patient Relationship to Patient: Lease Purchase Truck Driver Name: Delivery Method: PHONE - Phone Jaimie Days: Prior Verbal Notification: Recipient Understood Notice: Yes Recipient Signature: Yes Med Rec Note Co-signed by Attending: Coverage Notice Comment: DC IMM delivered, explained, signed by the patient, and placed in his chart. Signed form also left with patient. Reviewer: [id number] - Kate Farley Notice Issued Date-Time: 07/30/2019 14:40 Notice Type: Patient Choice Letter Notice Delivered To: Patient Relationship to Patient: Lease Purchase Truck Driver Name: Delivery Method: MAIL - Mail Jaimie Days: Prior Verbal Notification: Yes Recipient Understood Notice: Yes Recipient Signature: Yes Med Rec Note Co-signed by Attending: Coverage Notice Comment: RYAN signed for Obrians, declination for any HH provider. Last DP export: 07/30/19 4:29 p Patient Name: CONSTANZA SOLIS Page [phone] at 0910 All edits/amendments must be made on the electronic document DICTATION DATE: 08/03/19909 INSURANCE CLAIMS PROCESSOR: AARTI 08/03/19909 RPT#: [id number] DC DATE:08/02/19 STATUS: DIS IN [facility] [address] [place] [address] END OF REPORT
== END 2019-08-02 16:48 | disposition home or self-care (01) | DRG 871 ==
LOC: D.ER 16:39 → D.M2 19:01
PROVIDERS: Family Medicine; Internal Medicine Pulmonary Disease; ADMIT Internal Medicine Nephrology; ATTEND Internal Medicine Nephrology
DX: A41.9 Sepsis, unspecified organism (principal); J18.9 Pneumonia, unspecified organism; J44.0 Chronic obstructive pulmonary disease with (acute) lower respiratory infection; J44.1 Chronic obstructive pulmonary disease with (acute) exacerbation; F17.203 Nicotine dependence unspecified, with withdrawal; K92.1 Melena; E87.6 Hypokalemia; I10 Essential (primary) hypertension; I25.10 Atherosclerotic heart disease of native coronary artery without angina pectoris; K44.9 Diaphragmatic hernia without obstruction or gangrene; K21.9 Gastro-esophageal reflux disease without esophagitis; E04.1 Nontoxic single thyroid nodule

== ENCOUNTER 2019-08-17 13:05 | Inpatient (IN) | payer MEDICARE, MEDICAID ==
[2019-08-17] VITALS (10 sets, daily range): BP systolic 69–114; BP diastolic 32–67; BMI 28.6
[~2019-08-17] VITALS: Ht 165.1 cm; Wt 78.2 kg
[~2019-08-17 13:05] MED LIST changes: +DOXYCYCLINE HY100 M2 PO; +IPRAT-ALBUT 0.5-3 ML UPD; +OMNICEF300 MG PO
[2019-08-17 14:03] LABS: BASOPHILS 0.1 % (0-2); EOSINOPHILS 1.3 % (0-7); HEMATOCRIT 36.2 % (36.0-48.0); HEMOGLOBIN 11.7 g/dL (12-16); IMMATURE GRANULOCYTES 0.3 % (0-5); LYMPHOCYTES 10.9 % (15-50); MCH 31.6 pg (26.0-34.0); MCHC 32.3 g/dL (31.0-37.0); MCV 97.8 fL (80.0-100.0); MEAN PLATELET VOLUME 9.4 fL (7.4-10.4); MONOCYTES 6.8 % (2-11); NEUTROPHILS 80.6 % (40-80); PLATELET COUNT 356 10x3/uL (130-400); RDW 14.1 % (11.5-14.5); WBC 9.1 10x3/uL (4.8-10.8)
[2019-08-17 14:14] LABS: APTT 33.4 SECONDS (22.8-39.4); INR 1.07 (0.85-1.17); PROTIME 13.8 SECONDS (11.6-15.0)
[2019-08-17 14:33] LABS: ALBUMIN 3.1 g/dL (3.4-5.0); ALKALINE PHOSPHATASE 138 U/L (30-120); ALT (SGPT) 21 U/L (10-68); BILIRUBIN - TOTAL 0.27 mg/dL (0.2-1.3); CALCIUM 7.8 mg/dL (8.5-10.1); CARBON DIOXIDE 27.6 mmol/L (21.0-32.0); CHLORIDE - SERUM 89 mmol/L (98-107); CKMB 0.5 U/L (0.0-3.6); CREATINE KINASE 36 UL (21-215); CREATININE - SERUM 2.2 mg/dL (0.6-1.3); MAGNESIUM - SERUM 1.4 mg/dL (1.8-2.4); PROTEIN - SERUM 6.2 g/dL (6.4-8.2); SODIUM 128 mmol/L (136-145); TROPONIN-I < 0.017 ng/mL (0.000-0.060); eGFR NON AFRICAN AMERICAN 24 mL/min (90-120)
[2019-08-17 14:51] LABS: CALC OSMOLALITY 264 mosm/kg (275-300); GLUCOSE 166 mg/dL (74-106); POTASSIUM - SERUM 2.3 mmol/L (3.5-5.1); UREA NITROGEN 25 mg/dL (7-18)
--- NOTE | 2019-08-17 17:00 | NUR ---
NEW PATIENT ADMIT FROM ER VIA WC ACCOMPANIED BY ER STAFF. PATIENT IS ALERT AND ORIENTED X 4. PATIENT DENIES ANY NEED OR PAIN . ASSESSMENT COMPLETED. PATIENT ORIENTED TO ROOM AND CALL LIGHT. TELEMETRY PLACED. WILL CONTINUE WITH PLAN OF CARE. SR UP X 2 BED IN LOW POSITION AND CALL LIGHT IN REACH.
[2019-08-17 17:05] LABS: GLUCOSE NEGATIVE (NEGATIVE); KETONE NEGATIVE (NEGATIVE); NITRITE NEGATIVE (NEGATIVE); UROBILINOGEN NORMAL (NORMAL)
[2019-08-17 17:06] LABS: BILIRUBIN NEGATIVE (NEGATIVE)
[2019-08-18 00:30] VITALS: BP 79/45
--- NOTE | 2019-08-18 01:41 | NUR ---
PAGED SHEET MANAGER BUILDING MOVER X2 FOR LOW BP. WAITING ON RETURN CALL. WILL CTM.
--- NOTE | 2019-08-18 02:55 | NUR ---
MANUAL BP TAKEN LEFT ARM 91/48 RIGHT ARM 79/46
--- NOTE | 2019-08-18 03:09 | NUR ---
PAGED DOUG VIVAS APN ABOUT LOW BP 66/34 RECEIVED NEW ORDER FOR 500ML BOLUS NOW, LEAVE IVF AT 125ML/HR CONFIRM ORDER FOR CBC AND BMP IN AM. BOLUS NOW INFUSING. PT REMAINS ASYMPTOMATIC. CALL LIGHT IN REACH. WILL CTM.
[2019-08-18 04:30] VITALS: BP 70/50
--- NOTE | 2019-08-18 04:41 | NUR ---
PT VOICES NO C/O OR CONCERNS DURING THE NIGHT. RESTED QUEITLY ON AND OFF. NO DISTRESS OBSERVED. CALL LIGHT IN REACH. WILL CTM.
[2019-08-18 06:46] LABS: BASOPHILS 0.2 % (0-2); EOSINOPHILS 1.9 % (0-7); HEMATOCRIT 33.9 % (36.0-48.0); HEMOGLOBIN 10.5 g/dL (12-16); IMMATURE GRANULOCYTES 0.5 % (0-5); LYMPHOCYTES 21.2 % (15-50); MEAN PLATELET VOLUME 9.5 fL (7.4-10.4); NEUTROPHILS 69.2 % (40-80); PLATELET COUNT 361 10x3/uL (130-400); RBC 3.39 10x6/uL (4.00-5.40); RDW 14.5 % (11.5-14.5)
[2019-08-18 06:48] LABS: WBC 6.3 10x3/uL (4.8-10.8)
[2019-08-18 07:09] LABS: ANION GAP 8.6 mmol/L (8-16); CALCIUM 7.5 mg/dL (8.5-10.1); CARBON DIOXIDE 29.1 mmol/L (21.0-32.0); PHOSPHOROUS 3.7 mg/dL (2.5-4.9)
[2019-08-18 07:14] LABS: CREATININE - SERUM 1.4 mg/dL (0.6-1.3)
[2019-08-18 07:18] LABS: POTASSIUM - SERUM 2.7 mmol/L (3.5-5.1)
--- NOTE | 2019-08-18 07:49 | NUR ---
PT AWAKE AND OREITNED, LYING IN BED RECIEIVNG BREATHING TX. NO COMPLAINTS OR CONCERNS AT THIS TIME. CL IN REACH, SRX2. ALL QUESTIONS ANWERED TO THE BEST OF MY ABILITY.
[2019-08-18 10:14] VITALS: BP 104/59
[2019-08-18 12:46] VITALS: Ht 165.1 cm; Wt 78.2 kg
[2019-08-18 14:22] VITALS: BP 87/52
--- NOTE | 2019-08-18 18:12 | NUR ---
PT HAS BEEN ALERT AND ORIETNED ALL DAY. SHE HAS HAD MULTIPLE BOUTS OF NAUSEA AND VOMMITING, TX WITH ZOFRAN AND THAT HELPED. NO COMPLAINTS OR CONCERNS STATED OUTSIDE OF NAUSEA/VOMMITING AND GENERAL UNWELL FEELING. CL IN REACH, SRX2, NO FAMILY AT BEDSIDE. ALL QUESTIONS ANSWERED TO THE BEST OF MY ABILITY.
[2019-08-18 18:39] LABS: ANION GAP 8.2 mmol/L (8-16); CALCIUM 7.5 mg/dL (8.5-10.1); CARBON DIOXIDE 27.8 mmol/L (21.0-32.0); CREATININE - SERUM 1.4 mg/dL (0.6-1.3); MAGNESIUM - SERUM 1.7 mg/dL (1.8-2.4)
[2019-08-19 00:30] VITALS: BP 81/47
[2019-08-19 04:30] VITALS: BP 88/43
[2019-08-19 06:27] LABS: BASOPHILS 0.2 % (0-2); EOSINOPHILS 2.6 % (0-7); HEMOGLOBIN 10.1 g/dL (12-16); IMMATURE GRANULOCYTES 0.3 % (0-5); LYMPHOCYTES 25.5 % (15-50); MCH 30.9 pg (26.0-34.0); MCHC 29.7 g/dL (31.0-37.0); MEAN PLATELET VOLUME 9.5 fL (7.4-10.4); MONOCYTES 6.8 % (2-11); NEUTROPHILS 64.6 % (40-80); PLATELET COUNT 363 10x3/uL (130-400); RBC 3.27 10x6/uL (4.00-5.40); RDW 14.8 % (11.5-14.5); WBC 6.7 10x3/uL (4.8-10.8)
[2019-08-19 06:58] LABS: % SATURATION 21 % (15-55); IRON 57 ug/dl (35-150); TOTAL IRON BIND CAPACITY 261 ug/dl (260-445); UNSAT IRON BIND CAPACITY 204 ug/dl (150-375)
[2019-08-19 07:01] LABS: ALBUMIN 2.4 g/dL (3.4-5.0); ANION GAP 8.8 mmol/L (8-16); BILIRUBIN - DIRECT 0.1 mg/dL (0.00-0.30); BILIRUBIN - TOTAL 0.19 mg/dL (0.2-1.3); CALCIUM 7.6 mg/dL (8.5-10.1); CARBON DIOXIDE 28.1 mmol/L (21.0-32.0); CREATININE - SERUM 1.2 mg/dL (0.6-1.3); POTASSIUM - SERUM 3.9 mmol/L (3.5-5.1)
--- NOTE | 2019-08-19 07:25 | NUR ---
PT RESTING COMFORTABLY, LYING IN BED ON BACK. EYES CLOSED. BREATHS EVEN, REGULAR AND UNLABORED. NO SIGNS OR SYMTPOMS OF ACUTE DISTRESS NOTED AT THIS TIME. CL IN REACH, SRX2.
[2019-08-19 08:22] VITALS: BP 101/56
--- NOTE | 2019-08-19 09:17 | NUR ---
PT STATES SHE HAD NO NAUSEA DURING THE NIGHT AND IS FEELING MUCH BETTER TODAY. TOOK MEDICATIONS WITHOUT COMPLICATIONS. CL IN REACH, SRX2. NO FAMILY AT BEDSIDE.
[2019-08-19 12:17] VITALS: BP 122/68
--- NOTE | 2019-08-19 14:31 | NUR ---
RA RESTING SP02 93% WITH AMBULATION DROPPED TO 94% ON RA ON 2L/NC 94%
--- NOTE | 2019-08-19 15:07 | NUR ---
PT ESCORTED OUT VIA WHEELCHIAR TO POV. MOTHER DRIVING. CHOSE TO WAIT FOR O2 TO BE DELIVERED TO HER MOTHERS HOME.
--- NOTE | 2019-08-19 15:36 | MORECARE ---
CASE MANAGEMENT DISCHARGE SUMMARY PATIENT: CONSTANZA SOLIS UNIT: [id number] ADM DATE: 08/17/19 AGE: 58 : 58 SEX: F ROOM/BED: D.1956 AUTHOR: DISHA OVIEDO PHYSICIAN: REFERRING PHYSICIAN: RONY CISNEROS MD DATE OF SERVICE: 08/19/19 Discharge Plan Patient Name: CONSTANZA SOLIS Facility: [facility]:[place] : 1960 Planned Disposition: Home or Self Care Anticipated Discharge Date: Discharge Date: 08/19/2019 Expected LOS: Initial Reviewer: [email or web address] Initial Review Date: 08/17/2019 Generated: 08/19/19 4:35 pm Patient Name: CONSTANZA SOLIS Page 34790 at 1536 All edits/amendments must be made on the electronic document DICTATION DATE: 08/19/19 1535 ARCHEOLOGY PROFESSOR: AARTI 08/19/19 1535 RPT#: [id number] DC DATE:08/19/19 STATUS: DIS IN [facility] [address] [place] [address] END OF REPORT
--- NOTE | 2019-08-19 15:42 | MORECARE ---
CASE MANAGEMENT DISCHARGE SUMMARY PATIENT: CONSTANZA SOLSI UNIT: [id number] ADM DATE: 08/17/19 AGE: 58 : 58 SEX: F ROOM/BED: D.2079 AUTHOR: DISHA OVIEDO PHYSICIAN: REFERRING PHYSICIAN: RONY CISNEROS MD DATE OF SERVICE: 08/19/19 Discharge Plan Patient Name: CONSTANZA SOLIS Facility: [facility]:[place] : 1960 Planned Disposition: Home or Self Care Anticipated Discharge Date: Discharge Date: 08/19/2019 Expected LOS: Initial Reviewer: [email or web address] Initial Review Date: 08/17/2019 Generated: 08/19/19 4:42 pm DCPIA - Discharge Planning Initial Assessment Updated by [email or web address]: Nicci Coleman on 08/19/19 3:40 pm * Is the patient Alert and Oriented? Yes * How many steps to enter\exit or inside your home? * PCP SHARIF * Pharmacy [facility] [address] * Preadmission Environment Home with Family * ADLs Independent * Equipment Bedside Commode Cane Elevated Toliet Seat Rolling Walker Shower Chair Walker * List name and contact numbers for known caregivers / representatives who currently or will assist patient after discharge: MIKE RODRIGUEZ [phone] * Verbal permission to speak to the caregivers and representatives has been obtained from the patient. N/A * Community resources currently utilized [employer] * Please name any agencies selected above. TRYING TO GET SENIOR HELPERS * Additional services required to return to the preadmission environment? Yes * Can the patient safely return to the preadmission environment? Yes * Has this patient been hospitalized within the prior 30 days at any hospital? Yes Last DP export: 08/19/19 2:36 p Patient Name: CONSTANZA SOLIS Page 62703 at 1542 All edits/amendments must be made on the electronic document DICTATION DATE: 08/19/19 1542 HR OPERATIONS ADVISOR: AARTI 08/19/19 1542 RPT#: [id number] DC DATE:08/19/19 STATUS: DIS IN [address] [place] [address] END OF REPORT
--- NOTE | 2019-08-19 16:03 | MORECARE ---
CASE MANAGEMENT DISCHARGE SUMMARY PATIENT: CONSTANZA SOLIS UNIT: [id number] ADM DATE: 08/17/19 AGE: 58 : 58 SEX: F ROOM/BED: D.9254 AUTHOR: DISHA OVIEDO PHYSICIAN: REFERRING PHYSICIAN: RONY CISNEROS MD DATE OF SERVICE: 08/19/19 Discharge Plan Patient Name: CONSTANZA SOLIS Facility: [facility]:[place] : 1960 Planned Disposition: Home or Self Care Anticipated Discharge Date: Discharge Date: 08/19/2019 Expected LOS: Initial Reviewer: [email or web address] Initial Review Date: 08/17/2019 Generated: 08/19/19 5:03 pm Comments DCP- Discharge Planning Updated by [email or web address]: Nicci Coleman on 08/19/19 2:[address] Patient Name: CONSTANZA SOLIS Admission Status: ER Accout number: [id number] Admission Date: 08-17-2019 : 1960 Admission Diagnosis: Attending: RONY MCFARLANE Current LOS: 2 Anticipated DC Date: Planned Disposition: Home or Self Care Primary Insurance: [facility] MEDICARE SOLUTIONS Discharge Planning Comments: CM met with patient to complete initial dc planning assessment. CM educated patient on the CM role and verbal consent given by patient to complete assessment. Patient lives at home by herself, but she will be staying at her mothers for the next 3 days. Her mom's address is [address] [place] [address] phone # [phone]. Patient feels this is a safe discharge. CM discussed availability of home health, rehab services, and medical equipment. She stated that her mom will be her otr flatbed company truck driver home. She has applied for senior helpers, and did not need HH. She was 96% on room air, but when we did the walk test her pox dropped to 88%, recovered on 2L. RYAN for [facility] and [facility]. I spoke with Melvin at [facility] and he stated that they do not take her insurance. I called Abdoul at [facility] and they were going to deliver her portable O2 and concentrator to her mothers home. The patient did not want to wait on it at the hospital. Patient denied known discharge needs at this time. CM will continue to follow and will assist as needed with dc plans/needs. Child Attendant: Nicci Coleman DCPIA - Discharge Planning Initial Assessment Updated by [email or web address]: Nicci Coleman on 08/19/19 3:40 pm * Is the patient Alert and Oriented? Yes * How many steps to enter\exit or inside your home? * PCP SHARIF * Pharmacy [facility] [address] * Preadmission Environment Home with Family * ADLs Independent * Equipment Bedside Commode Cane Elevated Toliet Seat Rolling Walker Shower Chair Walker * List name and contact numbers for known caregivers / representatives who currently or will assist patient after discharge: MIKE MICHAEL [phone] * Verbal permission to speak to the caregivers and representatives has been obtained from the patient. N/A * Community resources currently utilized [employer] * Please name any agencies selected above. TRYING TO GET SENIOR HELPERS * Additional services required to return to the preadmission environment? Yes * Can the patient safely return to the preadmission environment? Yes * Has this patient been hospitalized within the prior 30 days at any hospital? Yes Last DP export: 08/19/19 2:42 p Patient Name: CONSTANZA SOLIS Page 54320 at 1603 All edits/amendments must be made on the electronic document DICTATION DATE: 08/19/191602 MANAGER BIOSTATISTICS: AARTI 08/19/19 160 RPT#: [id number] DC DATE:08/19/19 STATUS: DIS IN [place] [address] [place] [address] END OF REPORT
--- NOTE | 2019-08-19 16:10 | MORECARE ---
CASE MANAGEMENT DISCHARGE SUMMARY PATIENT: CONSTANZA SOLIS UNIT: [id number] ADM DATE: 08/17/19 AGE: 58 : 58 SEX: F ROOM/BED: D.2569 AUTHOR: DISHA OVIEDO PHYSICIAN: REFERRING PHYSICIAN: RONY CISNEROS MD DATE OF SERVICE: 08/19/19 Discharge Plan Patient Name: CONSTANZA SOLIS Facility: [facility]:[place] : 1960 Planned Disposition: Home or Self Care Anticipated Discharge Date: Discharge Date: 08/19/2019 Expected LOS: Initial Reviewer: [email or web address] Initial Review Date: 08/17/2019 Generated: 08/19/19 5:09 pm Comments DCP- Discharge Planning Updated by [email or web address]: Nicci Coleman on 08/19/19 2:[address] Patient Name: CONSTANZA SOLIS Admission Status: ER Accout number: [id number] Admission Date: 08-17-2019 : 1960 Admission Diagnosis: Attending: RONY MCFARLANE Current LOS: 2 Anticipated DC Date: Planned Disposition: Home or Self Care Primary Insurance: [facility] MEDICARE SOLUTIONS Discharge Planning Comments: CM met with patient to complete initial dc planning assessment. CM educated patient on the CM role and verbal consent given by patient to complete assessment. Patient lives at home by herself, but she will be staying at her mothers for the next 3 days. Her mom's address is [address] [place] [address] phone # [phone]. Patient feels this is a safe discharge. CM discussed availability of home health, rehab services, and medical equipment. She stated that her mom will be her delivery driver home. She has applied for senior helpers, and did not need HH. She was 96% on room air, but when we did the walk test her pox dropped to 88%, recovered on 2L. RYAN for [facility] and [facility]. I spoke with Melvin at [facility] and he stated that they do not take her insurance. I called Abdoul at [facility] and they were going to deliver her portable O2 and concentrator to her mothers home. The patient did not want to wait on it at the hospital. Patient denied known discharge needs at this time. CM will continue to follow and will assist as needed with dc plans/needs. Component Lab Tech: Nicci Coleman DCPIA - Discharge Planning Initial Assessment Updated by [email or web address]: Nicci Coleman on 08/19/19 3:40 pm * Is the patient Alert and Oriented? Yes * How many steps to enter\exit or inside your home? * PCP SHARIF * Pharmacy [facility] [address] * Preadmission Environment Home with Family * ADLs Independent * Equipment Bedside Commode Cane Elevated Tol[place] Seat Rolling Walker Shower Chair Walker * List name and contact numbers for known caregivers / representatives who currently or will assist patient after discharge: MIKE MICHAEL [phone] * Verbal permission to speak to the caregivers and representatives has been obtained from the patient. N/A * Community resources currently utilized [employer] * Please name any agencies selected above. TRYING TO GET SENIOR HELPERS * Additional services required to return to the preadmission environment? Yes * Can the patient safely return to the preadmission environment? Yes * Has this patient been hospitalized within the prior 30 days at any hospital? Yes External Providers External Provider: Roselia Next Contact Date: Service Request Date: Service Type: Resolution: Reviewer: Comments: Last DP export: 08/19/19 3:03 p Patient Name: CONSTANZA SOLIS Page 71306 at 1610 All edits/amendments must be made on the electronic document DICTATION DATE: 08/19/191608 NETWORKING ENGINEER: AARTI 08/19/19 1609 RPT#: [id number] DC DATE:08/19/19 STATUS: DIS IN [facility] [address] [place] [address] END OF REPORT
== END 2019-08-19 15:08 | disposition home or self-care (01) | DRG 682 ==
LOC: D.ER 13:05 → D.M2 15:38
PROVIDERS: Family Medicine; Internal Medicine Nephrology; ADMIT Family Medicine; ATTEND Family Medicine
DX: N17.9 Acute kidney failure, unspecified (principal); J18.9 Pneumonia, unspecified organism; E87.1 Hypo-osmolality and hyponatremia; F17.203 Nicotine dependence unspecified, with withdrawal; J44.0 Chronic obstructive pulmonary disease with (acute) lower respiratory infection; E87.6 Hypokalemia; K21.9 Gastro-esophageal reflux disease without esophagitis; T46.1X1A Poisoning by calcium-channel blockers, accidental (unintentional), initial encounter; I95.89 Other hypotension

== ENCOUNTER → 2019-09-12 10:17 | Outpatient (CLI) | payer MEDICARE, MEDICAID ==
[2019-08-18 12:46] VITALS: BMI 28.6
== END | disposition home or self-care (01) ==
LOC: D.LAB 09:50
PROVIDERS: ATTEND Family Medicine
DX: Z11.59 Encounter for screening for other viral diseases (principal)

== ENCOUNTER → 2019-09-13 07:49 | Outpatient (CLI) | payer MEDICARE, MEDICAID ==
[2019-08-18 12:46] VITALS: BMI 28.6
== END | disposition home or self-care (01) ==
LOC: D.RAD 09-12 10:45 → D.RT 09-12 11:00
PROVIDERS: ATTEND Internal Medicine Pulmonary Disease
DX: Z11.59 Encounter for screening for other viral diseases (principal); J18.9 Pneumonia, unspecified organism; J45.909 Unspecified asthma, uncomplicated

== ENCOUNTER 2019-10-22 09:46 | Day surgery (SDC) | payer MEDICARE, MEDICAID ==
[~2019-10-22] VITALS: Ht 165.1 cm; Wt 87.3 kg
[2019-10-22 10:20] LABS: BASOPHILS 0.1 % (0-2); EOSINOPHILS 2.1 % (0-7); HEMATOCRIT 38.5 % (36.0-48.0); HEMOGLOBIN 12.2 g/dL (12-16); IMMATURE GRANULOCYTES 0.3 % (0-5); LYMPHOCYTES 18.1 % (15-50); MCH 31.9 pg (26.0-34.0); MCHC 31.7 g/dL (31.0-37.0); MCV 100.8 fL (80.0-100.0); MEAN PLATELET VOLUME 9.2 fL (7.4-10.4); MONOCYTES 6.1 % (2-11); NEUTROPHILS 73.3 % (40-80); PLATELET COUNT 360 10x3/uL (130-400); RBC 3.82 10x6/uL (4.00-5.40); RDW 16.3 % (11.5-14.5); WBC 9.8 10x3/uL (4.8-10.8)
[2019-10-22 10:32] LABS: ANION GAP 10.8 mmol/L (8-16); CALCIUM 8.9 mg/dL (8.5-10.1); CARBON DIOXIDE 26.7 mmol/L (21.0-32.0); POTASSIUM - SERUM 3.5 mmol/L (3.5-5.1)
[2019-10-22 10:43] VITALS: BP 123/74; Ht 165.1 cm; Wt 87.3 kg
--- NOTE | 2019-10-22 13:04 | NUR ---
DC INSTRUCTIONS GIVEN TO PT. STATES UNDERSTANDING. DC'D IV CATH FULLY INTACT. WILL DC FROM HOSPITAL SHORTLY.
--- NOTE | 2019-10-22 13:17 | NUR ---
PT LEFT UNIT VIA WC AT 1510
--- NOTE | 2019-10-23 15:26 | OP ---
PATIENT NAME: CONSTANZA SOLIS MEDICAL RECORD: [id number] :58 LOCATION:D.OPS ADMISSION DATE: SURGEON: ROSAURA JUDGE DO DATE OF OPERATION: 10/22/2019 PROCEDURE: Colonoscopy. INDICATIONS FOR PROCEDURE: Screening for colorectal cancer. SCOPE: Olympus video pediatric colonoscope. MEDICATIONS: Propofol 400 mg IV per anesthesia. WITHDRAWAL TIME: 6 minutes. ESTIMATED BLOOD LOSS: None. COMPLICATIONS: None. FINDINGS: Informed consent was given. The patient was made comfortable with the above medication. After reaching an adequate level of sedation by slow IV push, the patient was placed on her left side. The endoscope was advanced under direct visualization through the rectum to the cecum, confirmed by the presence of the appendiceal orifice and ileocecal valve. The endoscope was slowly withdrawn and mucosa was carefully examined. The prep quality was good. There were no polyps visualized on today's examination. There were a few scattered diverticula located in the sigmoid colon. Retroflexion was performed in the rectum with visualization of grade I internal hemorrhoids without bleeding. The endoscope was withdrawn from the patient. The patient tolerated the procedure well and there were no complications. IMPRESSION: 1. Mild diverticulosis of the sigmoid colon. 2. Grade I internal hemorrhoids without bleeding. PLAN AND RECOMMENDATIONS: 1. Discharge home when recovery parameters are met. 2. Follow a high fiber diet. 3. Continue current medications. 4. Recall colonoscopy in 5 years for colorectal cancer screening purposes. TRANSINT:[id number] Voice Confirmation ID: [id number] DOCUMENT ID: [id number] ROSAURA JUDGE DO at 1526 CC: [id number] DICTATION DATE: 10/22/19 1231 SWEATBAND DRUMMER: 10/22/19 2159 [facility] 10/22/19 [place] [id number]
== END 2019-10-22 13:10 | disposition home or self-care (01) ==
LOC: D.OPS 09:46
PROVIDERS: Anesthesiology; ATTEND Internal Medicine Gastroenterology
DX: Z12.11 Encounter for screening for malignant neoplasm of colon (principal); J44.9 Chronic obstructive pulmonary disease, unspecified; I10 Essential (primary) hypertension; G62.9 Polyneuropathy, unspecified; Z72.0 Tobacco use

== ENCOUNTER 2019-10-29 09:48 | Day surgery (SDC) | payer MEDICARE, MEDICAID ==
[~2019-10-29] VITALS: Ht 165.1 cm; Wt 88.6 kg
--- NOTE | ~2019-10-29 | OP ---
PATIENT NAME: CONSTANZA SOLIS MEDICAL RECORD: [id number] :58 LOCATION:DBhavnaOPS ADMISSION DATE: SURGEON: ROSAURA JUDGE DO DATE OF OPERATION: 10/29/2019 PROCEDURE: EGD with biopsies. INDICATIONS FOR PROCEDURE: Nausea and vomiting and epigastric abdominal pain. SCOPE: Olympus video gastroscope. MEDICATIONS: Propofol 180 mg IV per anesthesia. ESTIMATED BLOOD LOSS: Minimal. COMPLICATIONS: None. FINDINGS: Informed consent was given. The patient was made comfortable with the above medication. After reaching an adequate level of sedation by slow IV push, the patient was placed on her left side. The endoscope was advanced under direct visualization through the mouth to the second portion of the duodenum with ease. The upper and middle esophagus appeared normal. In the lower esophagus and at the GE junction, there was evidence of LA class C, reflux-induced esophagitis. The endoscope was advanced beyond the GE junction into the stomach and retroflexed to view the cardia. There was a large hiatal hernia without associated ulcerations or other abnormalities. The body of the stomach appeared normal. In the antrum and prepyloric region, there were some changes consisting of erythema and granularity consistent with mild chronic gastritis. Cold forceps, biopsies were taken to submit for histopathology and to rule out the presence of H. pylori. The endoscope was advanced beyond the pylorus into the duodenum, which appeared normal to the second portion. Cold forceps, biopsies were taken to submit for histopathology. The endoscope was then withdrawn from the patient. The patient tolerated the procedure well and there were no complications. IMPRESSION: 1. LA class C, reflux-induced esophagitis. 2. Large sliding type hiatal hernia. 3. Gastritis changes in the antrum and prepyloric region. PLAN AND RECOMMENDATIONS: 1. Discharge home when recovery parameters are met. 2. Follow up biopsy specimen results. 3. GERD diet and reflux precautions. 4. Continue current medications. 5. Referral to general surgery for consideration of a fundoplication. 6. Follow up in GI clinic in 2 months. 7. Other considerations regarding the patient's nausea and abdominal pain could include a gastric emptying scan if still symptomatic after her surgery. TRANSINT:[id number] Voice Confirmation ID: [id number] DOCUMENT ID: [id number] OPERATIVE REPORT [id number] CONSTANZA SOLIS ROSAURA JUDGE DO CC: [id number] DICTATION DATE: 10/29/19 111 PHARMACY TEACHER: 10/29/192119 [facility] 10/29/19 [place] [address] [place] [id number]
[2019-10-29 10:35] VITALS: BP 124/74; Ht 165.1 cm; Wt 88.6 kg
[2019-10-29 11:19] LABS: HEMATOCRIT 39.5 % (36.0-48.0); HEMOGLOBIN 12.3 g/dL (12-16); MCH 31.6 pg (26.0-34.0); MCHC 31.1 g/dL (31.0-37.0); MCV 101.5 fL (80.0-100.0); MEAN PLATELET VOLUME 9.7 fL (7.4-10.4); RBC 3.89 10x6/uL (4.00-5.40); RDW 16.2 % (11.5-14.5); WBC 9.8 10x3/uL (4.8-10.8)
--- NOTE | 2019-10-29 11:45 | NUR ---
DC INSTRUCTIONS GIVEN TO PT/FAMILY. STATE UNDERSTANDING. DC'D IV CATH FULLY INTACT. WILL DC SHORTLY.
--- NOTE | 2019-10-29 11:59 | NUR ---
PT LEFT UNIT VIA WC AT 1147
== END 2019-10-29 11:47 | disposition home or self-care (01) ==
LOC: D.OPS 09:48
PROVIDERS: Anesthesiology; ATTEND Internal Medicine Gastroenterology
DX: R11.2 Nausea with vomiting, unspecified (principal); R10.13 Epigastric pain; K21.0 Gastro-esophageal reflux disease with esophagitis

== ENCOUNTER → 2019-11-15 09:43 | Outpatient (CLI) | payer MEDICARE, MEDICAID ==
[2019-10-29 10:35] VITALS: BMI 32.5
[2019-11-15 11:05] LABS: BILIRUBIN - DIRECT 0.08 mg/dL (0.00-0.30); BILIRUBIN - INDIRECT 0.07 mg/dL (0.00-1.00); BILIRUBIN - TOTAL 0.15 mg/dL (0.2-1.3); PROTEIN - SERUM 8.1 g/dL (6.4-8.2)
== END | disposition home or self-care (01) ==
LOC: D.LAB 09:43 → D.US 10:00
PROVIDERS: ATTEND Internal Medicine Gastroenterology
DX: K76.0 Fatty (change of) liver, not elsewhere classified (principal)

== ENCOUNTER 2019-12-12 09:42 | Day surgery (SDC) | payer MEDICARE, MEDICAID ==
[2019-10-29 10:35] VITALS: BMI 32.5
== END 2019-12-12 11:00 | disposition home or self-care (01) ==
LOC: D.OPS 09:42
PROVIDERS: ATTEND Surgery
DX: K21.9 Gastro-esophageal reflux disease without esophagitis (principal)

== ENCOUNTER 2019-12-20 14:46 | Inpatient (IN) | payer MEDICARE, MEDICAID ==
[~2019-12-20] VITALS: Ht 165.1 cm; Wt 87.5 kg
--- NOTE | 2019-12-20 17:00 | NUR ---
COVID SWAB, INFLUENZA SWAB, STREP SWAB TAKEN TO LAB
[2019-12-20 17:08] LABS: BASOPHILS 0.1 % (0-2); EOSINOPHILS 0.1 % (0-7); HEMATOCRIT 36.5 % (36.0-48.0); HEMOGLOBIN 11.6 g/dL (12-16); IMMATURE GRANULOCYTES 0.8 % (0-5); LYMPHOCYTES 6.9 % (15-50); MCH 31.5 pg (26.0-34.0); MCHC 31.8 g/dL (31.0-37.0); MCV 99.2 fL (80.0-100.0); MEAN PLATELET VOLUME 9.4 fL (7.4-10.4); MONOCYTES 8.8 % (2-11); NEUTROPHILS 83.3 % (40-80); PLATELET COUNT 414 10x3/uL (130-400); RBC 3.68 10x6/uL (4.00-5.40); RDW 15.1 % (11.5-14.5); WBC 17.2 10x3/uL (4.8-10.8)
[2019-12-20 17:15] LABS: INR 1.21 (0.85-1.17); PROTIME 15.2 SECONDS (11.6-15.0)
[2019-12-20 17:35] LABS: ANION GAP 14.8 mmol/L (8-16); CALCIUM 8.6 mg/dL (8.5-10.1); CARBON DIOXIDE 20.9 mmol/L (21.0-32.0); CREATININE - SERUM 1.2 mg/dL (0.6-1.3); POTASSIUM - SERUM 3.7 mmol/L (3.5-5.1)
[2019-12-20 17:49] LABS: ALBUMIN 3.1 g/dL (3.4-5.0); BILIRUBIN - TOTAL 0.3 mg/dL (0.2-1.3); C-REACTIVE PROTEIN 58.7 mg/dL (0.0-0.9); PROTEIN - SERUM 7.5 g/dL (6.4-8.2)
[2019-12-20 22:39] LABS: BILIRUBIN NEGATIVE (NEGATIVE); KETONE NEGATIVE (NEGATIVE); NITRITE NEGATIVE (NEGATIVE); UROBILINOGEN NORMAL mg/dL (< 2)
[2019-12-20 23:19] VITALS: BP 109/73
[2019-12-21 02:28] VITALS: BP 140/70
[2019-12-21 04:49] LABS: BASOPHILS 0.1 % (0-2); EOSINOPHILS 0 % (0-7); HEMATOCRIT 32.3 % (36.0-48.0); HEMOGLOBIN 10.2 g/dL (12-16); IMMATURE GRANULOCYTES 0.9 % (0-5); LYMPHOCYTES 3.5 % (15-50); MCH 31.4 pg (26.0-34.0); MCHC 31.6 g/dL (31.0-37.0); MCV 99.4 fL (80.0-100.0); MEAN PLATELET VOLUME 9.6 fL (7.4-10.4); MONOCYTES 7.1 % (2-11); NEUTROPHILS 88.4 % (40-80); PLATELET COUNT 430 10x3/uL (130-400); RBC 3.25 10x6/uL (4.00-5.40); RDW 15.1 % (11.5-14.5); WBC 18.4 10x3/uL (4.8-10.8)
[2019-12-21 05:20] LABS: ANION GAP 16.7 mmol/L (8-16); CALCIUM 7.9 mg/dL (8.5-10.1); CARBON DIOXIDE 19.5 mmol/L (21.0-32.0); MAGNESIUM - SERUM 1.7 mg/dL (1.8-2.4); PHOSPHOROUS 1.8 mg/dL (2.5-4.9); POTASSIUM - SERUM 4.2 mmol/L (3.5-5.1)
[2019-12-21 05:36] VITALS: BP 104/51
[2019-12-21 05:58] LABS: ERYTHROCYTE SEDIMENTATION RATE 90 mm/hr (0-30)
[2019-12-21 06:06] LABS: C-REACTIVE PROTEIN 23.8 mg/dL (0.0-0.9)
--- NOTE | 2019-12-21 08:39 | NUR ---
PT PROVIDED WITH MEAL TRAY. PT IS RESTING IN BED. NO DISTRESS NOTED. WILL CONTINUE TO MONITOR.
--- NOTE | 2019-12-21 09:00 | NUR ---
PT PROVIDED WITH BREAKFAST TRAY. PT SITTING UP IN BED. NO DISTRESS NOTED. COLOR WNL FOR RACE. PT VOICES NO NEEDS AT THIS TIME.
--- NOTE | 2019-12-21 09:32 | NUR ---
PT AMBULATED TO TOILET AT THIS TIME. NO DISTRESS NOTED. PT TOLERATED WELL.
[2019-12-21 09:48] VITALS: BP 131/59
[2019-12-21 11:12] VITALS: BP 101/62
--- NOTE | 2019-12-21 11:58 | NUR ---
PT GIVEN LUNCH TRAY AT THIS TIME. NO DISTRESS NOTED. RESPIRATIONS ARE EVEN AND UNLABORED. WILL CONTINUE TO MONITOR.
--- NOTE | 2019-12-21 15:30 | NUR ---
PT REPORTS THAT SHE IS NAUSEATED.
[2019-12-21 16:08] VITALS: BP 108/49
--- NOTE | 2019-12-21 19:36 | NUR ---
RECEIVED REPORT, ASSUMED CARE, BREATHING EVEN UNLABORED, CALL LIGHT IN REACH, BED LOWEST POSITION, SLEEPING NO S/S OF DISTRESS NOTED, IV PATENT LAC, RAC SL
[2019-12-21 21:41] VITALS: BP 118/73
--- NOTE | 2019-12-22 04:32 | NUR ---
I have reviewed this patient and I concur with the Shift Assessment completed by the Licensed Practical Nurse today this shift.
[2019-12-22 04:40] VITALS: BP 123/75
[2019-12-22 06:04] LABS: BASOPHILS 0.1 % (0-2); EOSINOPHILS 0.3 % (0-7); HEMATOCRIT 29.9 % (36.0-48.0); HEMOGLOBIN 9.4 g/dL (12-16); IMMATURE GRANULOCYTES 0.8 % (0-5); LYMPHOCYTES 9.3 % (15-50); MCH 30.8 pg (26.0-34.0); MCHC 31.4 g/dL (31.0-37.0); MEAN PLATELET VOLUME 9.5 fL (7.4-10.4); MONOCYTES 8.4 % (2-11); NEUTROPHILS 81.1 % (40-80); PLATELET COUNT 487 10x3/uL (130-400); RBC 3.05 10x6/uL (4.00-5.40); RDW 15.3 % (11.5-14.5); WBC 14.6 10x3/uL (4.8-10.8)
[2019-12-22 06:54] LABS: CALCIUM 8.2 mg/dL (8.5-10.1); CREATININE - SERUM 0.9 mg/dL (0.6-1.3)
[2019-12-22 07:07] LABS: ANION GAP 10.4 mmol/L (8-16); CARBON DIOXIDE 25.1 mmol/L (21.0-32.0); MAGNESIUM - SERUM 2.4 mg/dL (1.8-2.4); PHOSPHOROUS 2.3 mg/dL (2.5-4.9); POTASSIUM - SERUM 3.5 mmol/L (3.5-5.1)
--- NOTE | 2019-12-22 07:34 | NUR ---
PT AWAKE AND ORIETNED, LYING IN BED. C//O HEADACHE. REQUESTS MEDICATION, WILL ADMINSITER. NO TOHER COMPLAINTS OR CONCERNS AT THIS TIME. CL IN REACH, SRX2.
[2019-12-22 08:00] VITALS: BP 104/55
[2019-12-22 10:30] VITALS: BP 95/53
[2019-12-22 15:00] VITALS: BP 114/55
[2019-12-22 21:42] VITALS: BP 128/55
[2019-12-23 01:49] VITALS: BP 103/57
--- NOTE | 2019-12-23 03:28 | NUR ---
I have reviewed this patient and I concur with the Shift Assessment completed by the Licensed Practical Nurse today this shift.
[2019-12-23 05:39] VITALS: BP 96/44
[2019-12-23 06:34] LABS: ANION GAP 9.9 mmol/L (8-16); BASOPHILS 0.3 % (0-2); CALCIUM 8.3 mg/dL (8.5-10.1); CARBON DIOXIDE 23.7 mmol/L (21.0-32.0); EOSINOPHILS 1.1 % (0-7); HEMATOCRIT 29.4 % (36.0-48.0); HEMOGLOBIN 9.4 g/dL (12-16); IMMATURE GRANULOCYTES 1.7 % (0-5); LYMPHOCYTES 19.5 % (15-50); MCH 31.9 pg (26.0-34.0); MCV 99.7 fL (80.0-100.0); MEAN PLATELET VOLUME 9.6 fL (7.4-10.4); MONOCYTES 7.4 % (2-11); PLATELET COUNT 508 10x3/uL (130-400); POTASSIUM - SERUM 3.6 mmol/L (3.5-5.1); RBC 2.95 10x6/uL (4.00-5.40); RDW 15.5 % (11.5-14.5)
[2019-12-23 06:35] LABS: PHOSPHOROUS 3.2 mg/dL (2.5-4.9)
[2019-12-23 08:18] VITALS: BP 108/58
--- NOTE | 2019-12-23 10:36 | NUR ---
PT AWAKE AND ORIENTED, C/O PAIN. PROVIDED MEDICATIONS TO ALLEVIATE. STATES SHE FEELS WORSE THAN THE PREVIOUS DAY BUT IS CONCERNED SHE WILL MISS HER SURGERY TUESDAY. WILL INFORM MD. ESPINOZA IN REACH, SRX2.
--- NOTE | 2019-12-23 13:31 | NUR ---
I have reviewed this patient and I concur with the Shift Assessment completed by the Licensed Practical Nurse today this shift.
--- NOTE | 2019-12-23 15:38 | NUR ---
PT AWAKE AND OREINTED, LYING IN BED WATCHING TELIVISION. REMOVED INFILTRATED LAC I/V, TIP INTACT. RAC I/V STILL WORKING WNL, IV INFUSING PROPPERLY. NO COMPLAINTS OR CONCERNS AT THIS TIME. NO FAMILY AT BEDSIDE. CL IN REACH, SRX2.
[2019-12-23 17:41] VITALS: BP 151/85
[2019-12-23 21:30] VITALS: BP 156/79
[2019-12-24 01:30] VITALS: BP 139/76
--- NOTE | 2019-12-24 03:29 | NUR ---
I have reviewed this patient and I concur with the Shift Assessment completed by the Licensed Practical Nurse today this shift.
[2019-12-24 04:00] VITALS: BP 128/78
[2019-12-24 04:35] VITALS: BP 130/79
[2019-12-24 06:46] LABS: CALCIUM 8.3 mg/dL (8.5-10.1); CARBON DIOXIDE 26.3 mmol/L (21.0-32.0); CREATININE - SERUM 0.9 mg/dL (0.6-1.3); PHOSPHOROUS 3.9 mg/dL (2.5-4.9)
[2019-12-24 06:48] LABS: POTASSIUM - SERUM 4.3 mmol/L (3.5-5.1)
[2019-12-24 06:50] LABS: BASOPHILS 0.2 % (0-2); EOSINOPHILS 0.4 % (0-7); HEMATOCRIT 30.2 % (36.0-48.0); HEMOGLOBIN 9.4 g/dL (12-16); IMMATURE GRANULOCYTES 5.2 % (0-5); LYMPHOCYTES 13.2 % (15-50); MCH 30.7 pg (26.0-34.0); MCHC 31.1 g/dL (31.0-37.0); MCV 98.7 fL (80.0-100.0); MEAN PLATELET VOLUME 9.7 fL (7.4-10.4); MONOCYTES 7.6 % (2-11); NEUTROPHILS 73.4 % (40-80); PLATELET COUNT 591 10x3/uL (130-400); RBC 3.06 10x6/uL (4.00-5.40); RDW 15.5 % (11.5-14.5)
[2019-12-24 06:51] LABS: WBC 15.1 10x3/uL (4.8-10.8)
[2019-12-24 09:39] VITALS: BP 123/65
--- NOTE | 2019-12-24 10:37 | NUR ---
PT AWAKE AND ORIENTED, LYING IN BED WATCHING TELIVISION. EXPRESSES CONCERNS ABOUT HER ELECTIVE SURGERY TUESDAY, PT REMAINS HOPEFULL SHE WILL BE OUT OF THE HOSPITAL BY THEN. NO OTHER COMPLAINTS OR CONCERNS AT THIS TIME. WILL CNT. TO MONITOR, NO FAMILY AT BEDSIDE. CL IN REACH, SRX2.
[2019-12-24 12:00] VITALS: BP 147/78
[2019-12-24 12:38] VITALS: Ht 165.1 cm; Wt 87.5 kg
--- NOTE | 2019-12-24 16:57 | NUR ---
I have reviewed this patient and I concur with the Shift Assessment completed by the Licensed Practical Nurse today this shift.
[2019-12-24 22:24] VITALS: BP 151/78
--- NOTE | 2019-12-25 02:00 | NUR ---
PT LAYING IN BED RESTING QUIETLY. EYES C;LOSED. RESP ARE EVEN ET UNLABORED. 02 IN USE.NO DISTRESS NOTED.
[2019-12-25 03:19] VITALS: BP 161/72
--- NOTE | 2019-12-25 03:23 | NUR ---
pt laying in bed alert and oriented.resp are even et unlabored.02 @ 2l/m per nasal cannula.pt c/o pain to lower back.rates pain as a 6 on pain scale.assess pt to start IV.unable to start IV.ICU nurse ask to start IV.pt is ambulatory with use of cane.no distress noted.callbell in reach.siderails up x2.
[2019-12-25 05:30] LABS: HEMATOCRIT 30.6 % (36.0-48.0); LYMPHOCYTES 13.7 % (15-50); MCH 32.3 pg (26.0-34.0); MCHC 32.7 g/dL (31.0-37.0); MCV 98.7 fL (80.0-100.0); MEAN PLATELET VOLUME 9.3 fL (7.4-10.4); NEUTROPHILS 80.9 % (40-80); PLATELET COUNT 584 10x3/uL (130-400); RDW 15.7 % (11.5-14.5); WBC 17.2 10x3/uL (4.8-10.8)
[2019-12-25 05:41] LABS: ANION GAP 12.2 mmol/L (8-16); CALCIUM 8.9 mg/dL (8.5-10.1); CARBON DIOXIDE 27.3 mmol/L (21.0-32.0); CREATININE - SERUM 0.9 mg/dL (0.6-1.3); POTASSIUM - SERUM 4.5 mmol/L (3.5-5.1)
[2019-12-25 06:59] VITALS: BP 117/66
[2019-12-25 07:00] VITALS: BP 138/64
[2019-12-25 10:30] VITALS: BP 102/69
--- NOTE | 2019-12-25 10:50 | NUR ---
0707-LYING IN BED, AWAKE, ALERT, ORIENTED--C/O PAIN TO LOWER BACK--PT HAS NO IV ACCESS AT THIS TIME. RESP EVEN AND UNLABORED ON RA. PT TALKING ON CELL PHONE. WILL GIVE PAIN MED CHELSEA.
--- NOTE | 2019-12-25 10:52 | NUR ---
0739-ALL AM PO MEDS INCLUDING NORCO AND PHENERGAN FOR PAIN GIVEN-PT TOLERATED ALL WELL. 0900-LYING IN BED TO LEFT SIDE, EYES CLOSED, AROUSES EASILY TO VERBAL STIMULI. NO DISTRESS NOTED.
[2019-12-25 15:00] VITALS: BP 146/66
--- NOTE | 2019-12-25 16:44 | NUR ---
1413-CONTACTED ANJANA COE NURSE PRAC-EXPLAINED THAT PT HAS BEEN W/O IV FOR A WHILE NOW AND NURSE IS UNABLE TO OBTAIN VASCULAR ACCESS, NEW V.O. TO CHANGE ROCEPHIN TO IM, CHANGE DECADDRON TO PO, DC VANCO AND PLACE PT ON DOXYCYCLINE 100MG PO BID. VERBAL ORDERS READ BACK AND CONFIRMED, THEN CHANGED IN COMPUTER/THIS NURSE.
--- NOTE | 2019-12-25 16:47 | NUR ---
1400-ATTEMPTED TO START PT'S IV X'S 2 STICKS-PT REFUSES ANY FURTHER STICKS AT THIS TIME, WILL CONTACT PT'S DOCTOR.
--- NOTE | 2019-12-25 17:33 | MORECARE ---
CASE MANAGEMENT DISCHARGE SUMMARY PATIENT: CONSTANZA SOLIS UNIT: [id number] ADM DATE: 12/20/19 AGE: 59 : 58 SEX: F ROOM/BED: D.210 AUTHOR: DISHA OVIEDO PHYSICIAN: REFERRING PHYSICIAN: STEFANIE LYNN MD DATE OF SERVICE: 12/25/19 Discharge Plan Patient Name: CONSTANZA SOLIS Facility: [facility]:[place] : 1960 Planned Disposition: Home Anticipated Discharge Date: 12/26/19 Discharge Date: Expected LOS: 6 Initial Reviewer: [email or web address] Initial Review Date: 12/25/2019 Generated: 12/25/19 6:32 pm DCPIA - Discharge Planning Initial Assessment Updated by [email or web address]: Leilani Kaur on 12/25/19 5:32 pm * Is the patient Alert and Oriented? Yes * How many steps to enter\exit or inside your home? 0/0 * PCP Dr. Uriarte * Pharmacy [facility] on [facility] * Preadmission Environment Home Alone * ADLs Partial Dependent * Partial ADLs (Assistance needed) Ambulation * Equipment Bedside Commode Cane Nebulizer Other Oxygen Rolling Walker * Other Equipment Portable oxygen * List name and contact numbers for known caregivers / representatives who currently or will assist patient after discharge: Donya Murphy [facility] - [phone] * Verbal permission to speak to the caregivers and representatives has been obtained from the patient. Yes * Community resources currently utilized None * Please name any agencies selected above. DME for oxygen is [employer] * Additional services required to return to the preadmission environment? No * Can the patient safely return to the preadmission environment? Yes * Has this patient been hospitalized within the prior 30 days at any hospital? No Patient Name: CONSTANZA SOLIS Page 00457 at 1733 All edits/amendments must be made on the electronic document DICTATION DATE: 12/25/191731 DIRECTOR OF RESEARCH CENTER: AARTI 12/25/191731 RPT#: [id number] DC DATE: STATUS: ADM IN [facility] [address] [place] [address] END OF REPORT
--- NOTE | 2019-12-25 17:41 | MORECARE ---
CASE MANAGEMENT DISCHARGE SUMMARY PATIENT: CONSTANZA SOLIS UNIT: [id number] ADM DATE: 12/20/19 AGE: 59 : 58 SEX: F ROOM/BED: D.0495 AUTHOR: DISHA OVIEDO PHYSICIAN: REFERRING PHYSICIAN: STEFANIE LYNN MD DATE OF SERVICE: 12/25/19 Discharge Plan Patient Name: CONSTANZA SOLIS Facility: [facility]:[place] : 1960 Planned Disposition: Home Anticipated Discharge Date: 12/26/19 Discharge Date: Expected LOS: 6 Initial Reviewer: [email or web address] Initial Review Date: 12/25/2019 Generated: 12/25/19 6:41 pm Comments DCP- Discharge Planning Updated by [email or web address]: Leilani Kaur on 12/25/19 4:[address] Patient Name: CONSTANZA SOILS Admission Status: ER Accout number: [id number] Admission Date: 12-20-2019 : 1960 Admission Diagnosis:PNEUMONIA, UNSPECIFIED ORGANISM Attending: STEFANIE LYNN Current LOS: 5 Anticipated DC Date: 12-26-2019 Planned Disposition: Home Primary Insurance: [facility] [employer] Discharge Planning Comments: Discharge Planning Comments: CM met with patient to complete initial dc planning assessment. CM educated patient on the CM role and verbal consent given by patient to complete assessment. CM verified patient's address, phone number, and emergency contact phone numbers. Patient lives at home alone. At discharge patient plans to go to her mother's home for a few days, then will return to her home and feels this is a safe discharge. Her mother lives at [address] [place] [address] in [place]. CM discussed availability of home health, rehab services, and medical equipment. Patient denied known discharge needs at this time. Transportation provider at discharge will be her mother. States she has applied for [employer] and they are working on getting that started. States she wears oxygen at home on 2 liters 11/10. CM will continue to follow and will assist as needed with dc plans/needs. Freight Inspector: Leilani Kaur DCPIA - Discharge Planning Initial Assessment Updated by [email or web address]: Leilani Kaur on 12/25/19 5:32 pm * Is the patient Alert and Oriented? Yes * How many steps to enter\exit or inside your home? 0/0 * PCP Dr. Uriarte * Pharmacy [facility] on [facility] * Preadmission Environment Home Alone * ADLs Partial Dependent * Partial ADLs (Assistance needed) Ambulation * Equipment Bedside Commode Cane Nebulizer Other Oxygen Rolling Walker * Other Equipment Portable oxygen * List name and contact numbers for known caregivers / representatives who currently or will assist patient after discharge: Donya Murphy [facility] - [phone] * Verbal permission to speak to the caregivers and representatives has been obtained from the patient. Yes * Community resources currently utilized None * Please name any agencies selected above. DME for oxygen is [employer] * Additional services required to return to the preadmission environment? No * Can the patient safely return to the preadmission environment? Yes * Has this patient been hospitalized within the prior 30 days at any hospital? No Last DP export: 12/25/19 4:33 p Patient Name: CONSTANZA SOLIS Page [id number] at 1741 All edits/amendments must be made on the electronic document DICTATION DATE: 12/25/191740 BELLHOP CAPTAIN: AARTI 12/25/191740 RPT#: [id number] DC DATE: STATUS: ADM IN [facility] [address] [place] [address] END OF REPORT
[2019-12-25 20:00] VITALS: BP 142/64
--- NOTE | 2019-12-25 20:34 | NUR ---
PT GIVEN PM MEDS. PT GIVEN PAIN MED REQUESTED.RATES PAIN A 10 ON PAIN SCALE.WILL CONTINUE TO MONITOR.
--- NOTE | 2019-12-25 20:45 | NUR ---
RECIEVED PT LAYING IN BED RESTING QUIETLY. PT IS ALERT AND ORIENTED.C/O PAIN TO HER BACK. RATES PAIN A 4 ON PAIN SCALE. HAS 02 @ 2L/M PER NASAL CANNULA.RESP ARE EVEN ET UNLABORED.PT STATES APPETITE IS GOOD .PT AMBULATORY,USES A CANE.CALLBELL IN REACH. SIDERAILS UP X2.NO DISTRESS NOTED.
[2019-12-26] VITALS: BP 141/70
--- NOTE | 2019-12-26 02:10 | NUR ---
PT LAYING IN BED RESTING QUIETLY EYES CLOSED. 02 IN USE. RESP ARE EVEN ET UNLABORED.NO DISTRESS NOTED.
[2019-12-26 04:00] VITALS: BP 111/69
[2019-12-26 06:21] LABS: HEMATOCRIT 30.2 % (36.0-48.0); HEMOGLOBIN 9.7 g/dL (12-16); MCH 31.5 pg (26.0-34.0); MCHC 32.1 g/dL (31.0-37.0); MCV 98.1 fL (80.0-100.0); MEAN PLATELET VOLUME 9.3 fL (7.4-10.4); PLATELET COUNT 595 10x3/uL (130-400); RBC 3.08 10x6/uL (4.00-5.40); RDW 15.5 % (11.5-14.5); WBC 14.5 10x3/uL (4.8-10.8)
[2019-12-26 06:26] LABS: ANION GAP 10.7 mmol/L (8-16); CALCIUM 8.4 mg/dL (8.5-10.1); CARBON DIOXIDE 30.5 mmol/L (21.0-32.0); MAGNESIUM - SERUM 1.8 mg/dL (1.8-2.4); PHOSPHOROUS 4.9 mg/dL (2.5-4.9)
[2019-12-26 06:27] LABS: POTASSIUM - SERUM 3.2 mmol/L (3.5-5.1)
[2019-12-26 07:04] LABS: LYMPHOCYTES 22 % (15-50); MONOCYTES 5 % (2-11); NEUTROPHILS 65 % (40-80); PLATELET ESTIMATE INCREASED
[2019-12-26 07:42] VITALS: BP 137/66
[2019-12-26 14:21] VITALS: BP 164/89
[2019-12-26 15:12] LABS: AEROBE ID Final report (())
--- NOTE | 2019-12-26 15:58 | NUR ---
0700 BEDSIDE REPORT RECEIVED AWAKE ALERT SITTING UP IN BED WITH NO DISTRESS NOTED ASSESSMENT COMPLETE
--- NOTE | 2019-12-26 16:03 | NUR ---
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
--- NOTE | 2019-12-26 16:04 | NUR ---
4782 DISCHARGED HOME WRITTEN AND VERBAL DISCHARGE INSTRUCTIONS GIVEN. VERBALIZED UNDERSTANDING TAKEN TO CAR VIA WC HER MOTHER IS TAKING HOME
== END 2019-12-26 15:15 | disposition home or self-care (01) | DRG 178 ==
LOC: D.ER 14:46 → D.EDHOLD 20:45 → D.M2 20:45
PROVIDERS: Family Medicine; ADMIT Family Medicine; ATTEND Family Medicine
DX: J69.0 Pneumonitis due to inhalation of food and vomit (principal); E87.1 Hypo-osmolality and hyponatremia; R78.81 Bacteremia; J96.11 Chronic respiratory failure with hypoxia; J44.1 Chronic obstructive pulmonary disease with (acute) exacerbation; I10 Essential (primary) hypertension; K21.9 Gastro-esophageal reflux disease without esophagitis; F41.8 Other specified anxiety disorders; G62.9 Polyneuropathy, unspecified; K44.9 Diaphragmatic hernia without obstruction or gangrene; B95.7 Other staphylococcus as the cause of diseases classified elsewhere

== ENCOUNTER → 2020-01-01 15:11 | Outpatient (CLI) | payer MEDICARE, MEDICAID ==
[2019-12-24 12:38] VITALS: BMI 32.1
[~2020-01-01 15:11] MED LIST changes: +HYDROCODON-ACE1 EA10 PO
== END | disposition home or self-care (01) ==
LOC: D.RAD 15:11
PROVIDERS: ATTEND Surgery
DX: J18.9 Pneumonia, unspecified organism (principal)

== ENCOUNTER 2020-01-04 07:21 | Day surgery (SDC) | payer MEDICARE, MEDICAID ==
[~2020-01-04] VITALS: Ht 165.1 cm; Wt 87.5 kg
[2020-01-04] VITALS (10 sets, daily range): BP systolic 131–159; BP diastolic 64–95; BMI 32.1
--- NOTE | ~2020-01-04 | OP ---
PATIENT NAME: CONSTANZA SOLIS MEDICAL RECORD: [id number] :58 LOCATION:[facility] ADMISSION DATE: SURGEON: COLIN HOUSTON MD DATE OF OPERATION: 01/04/2020 PREOPERATIVE DIAGNOSES: 1. Paraesophageal hernia. 2. Gastroesophageal reflux disease. 3. Asthma. POSTOPERATIVE DIAGNOSES: 1. Paraesophageal hernia. 2. Gastroesophageal reflux disease. 3. Asthma. PROCEDURE: Laparoscopic paraesophageal hernia repair with Toupet fundoplication. SURGEON: Colin Houston MD REPORT OF PROCEDURE: The patient's abdomen was prepped and draped in sterile fashion. A Veress needle was inserted in the left upper quadrant and the abdomen was insufflated. An 11-mm Visiport trocar was then inserted in the midline just above the umbilicus. I could see the Veress needle and there was no sign of any injury to bowel or surrounding structures. An 11-mm trocar was placed in the left subcostal region, a 5-mm trocar was placed in the epigastrium, a 5-mm trocar was placed in the right lateral subcostal region, and a 5-mm trocar was placed in the left lateral abdomen. A liver retractor was inserted and the left lobe of the liver was elevated. The patient had a large pedunculated soft liver. Underneath this, we could see the patient's stomach with the top quarter of it projecting up into the thoracic cavity consistent with a known history of paraesophageal hernia. We can pull this down, but it would immediately go right back up into chest cavity and it appeared to be fairly tightly held into the chest. We began our dissection by taking down the lesser omentum using Harmonic scalpel. We continued this dissection up to the right side of the right rin. As we dissected this out, we were able to get up into the chest cavity and began releasing the hernia sac from around the esophagus. The patient had a lot of fatty tissue present on the anterior aspect of the stomach. We were able to take this down with the hernia sac. Once we had this freed up, then we began our dissection on the greater curvature of the stomach, taking down the short gastrics of the upper third of the stomach using Harmonic scalpel. We continued this to the left side of the right rin. We then began taking down the peritoneum and hernia sac from the side of the esophageal hiatus and eventually was able to get all of this freed up and have a 360-degree inspection of the esophagus. We had to dissect the esophagus out far up into the chest in order to free it up enough to where we can get it to rest out into the abdominal cavity freely. I can only get about a cm or so of the esophagus to easily lay distal to the esophageal hiatus without any tension. The esophageal hiatus was then reapproximated with interrupted 0 Polydeks times 3 with good approximation of this tissue. We then performed a 180-degree posterior Toupet wrap of the fundus of the stomach around the distal esophagus. This was done with interrupted 0 Polydeks times 6. At the conclusion of the case, we had no evidence of any active bleeding. I irrigated out the abdomen. The liver retractor was then removed. The 11-mm trocar site fascias were closed with interrupted 0 Vicryls using a Campos-Pushpa suture passer device. The OPERATIVE REPORT [id number] CONSTANZA SOLIS ports and insufflation were then removed. The wounds were infused with a total of 10 mL of 0.25% Marcaine with epinephrine and then closed with subcutaneous 5-0 Monocryl. COMPLICATIONS: None. CONDITION: Stable. ANESTHESIA: General endotracheal and local. BLOOD LOSS: 50 mL. TRANSINT:[id number] Voice Confirmation ID: [id number] DOCUMENT ID: [id number] COLIN HOUSTON MD CC: RACHNA OLGUIN MD and ROSAURA JUDGE DO [id number] DICTATION DATE: 01/04/20 1532 MANAGER ENGLISH: 01/05/20 0238 REG [facility] [address] [place] [address]
[2020-01-04 08:05] LABS: ANION GAP 18.6 mmol/L (8-16); CALCIUM 9.2 mg/dL (8.5-10.1); CARBON DIOXIDE 22.8 mmol/L (21.0-32.0); CREATININE - SERUM 1.1 mg/dL (0.6-1.3); POTASSIUM - SERUM 3.4 mmol/L (3.5-5.1)
[2020-01-04 08:14] LABS: BASOPHILS 0.2 % (0-2); HEMATOCRIT 38.4 % (36.0-48.0); HEMOGLOBIN 11.9 g/dL (12-16); IMMATURE GRANULOCYTES 0.8 % (0-5); LYMPHOCYTES 16.4 % (15-50); MCH 31.6 pg (26.0-34.0); MCV 101.9 fL (80.0-100.0); MEAN PLATELET VOLUME 9.3 fL (7.4-10.4); MONOCYTES 7.5 % (2-11); NEUTROPHILS 74.1 % (40-80); PLATELET COUNT 479 10x3/uL (130-400); RBC 3.77 10x6/uL (4.00-5.40); WBC 12.5 10x3/uL (4.8-10.8)
--- NOTE | 2020-01-04 10:23 | NUR ---
1023 PT TESTED POSITIVE FOR LIFETIME SUICIDE SCREENING. PT SOUGHT HELP MANY YEARS AGO DURING THIS EVENT. PT ON CURRENT TREATMENT AND DOES NOT WANT TO BE EVALUATED FURTHER.
--- NOTE | 2020-01-04 20:45 | NUR ---
AROUSES TO VERBAL STIMULI. RESP UNLABORED. O2 @ 5L ON. LAP SITES X 5 TO ABD WITH BANDAIDS INTACT. NO DRAINAGE NOTED. IV TO RFA INTACT WITHOUT REDNESS OR EDEMA NOTED. CL IN REACH
[2020-01-05 00:55] VITALS: BP 144/78
--- NOTE | 2020-01-05 03:00 | NUR ---
I have reviewed this patient and I concur with the Shift Assessment completed by the Licensed Practical Nurse today this shift.
[2020-01-05 04:15] VITALS: BP 157/87
[2020-01-05 07:00] VITALS: BP 182/96
[2020-01-05 08:44] LABS: HEMATOCRIT 36.4 % (36.0-48.0); HEMOGLOBIN 11.1 g/dL (12-16); MCH 31.1 pg (26.0-34.0); MCHC 30.5 g/dL (31.0-37.0); MEAN PLATELET VOLUME 9.9 fL (7.4-10.4); PLATELET COUNT 505 10x3/uL (130-400); RBC 3.57 10x6/uL (4.00-5.40); RDW 15.9 % (11.5-14.5)
[2020-01-05 08:54] LABS: ANION GAP 16.3 mmol/L (8-16); CALCIUM 8.3 mg/dL (8.5-10.1); CARBON DIOXIDE 21.6 mmol/L (21.0-32.0); CREATININE - SERUM 0.9 mg/dL (0.6-1.3); POTASSIUM - SERUM 3.9 mmol/L (3.5-5.1)
--- NOTE | 2020-01-05 08:59 | NUR ---
AWAKE AND ALERT. ORIENTED X 3. NO C/O AT THIS TIME. LUNGS ARE CLEAR BILATERALLY, INSTRUCTED IN USE OF IS WA WITH RETURN DEMONSTRATION. SKIN IS INTACT WITHOUT REDNESS EXCEPT 5 SMALL INSERTION SITES IN ABDOMEN WHICH ARE CLEAN AND DRY. IV TO RIGHT FOREARM IS PATENT WITHOUT REDNESS AT INSERTION SITE. DENIES NEEDS.
[2020-01-05 09:11] LABS: EOSINOPHILS 2 % (0-7); LYMPHOCYTES 8 % (15-50); MONOCYTES 2 % (2-11); NEUTROPHILS 88 % (40-80)
[2020-01-05 09:12] LABS: PLATELET ESTIMATE INCREASED
--- NOTE | 2020-01-05 09:30 | NUR ---
TOOK AM MEDS WITHOUT DIFFICULTY. DENIES NEEDS.
[2020-01-05 11:00] VITALS: BP 162/92
--- NOTE | 2020-01-05 11:20 | NUR ---
OFF UNIT VIA WC FOR TEST.
--- NOTE | 2020-01-05 11:40 | NUR ---
RETURNED FROM TEST. UP TO BR PER SELF.
[2020-01-05 13:08] VITALS: Ht 165.1 cm; Wt 87.5 kg
[2020-01-05] MEDS ORDERED: REGLAN10 MG PO (13:30)
[2020-01-05] MEDS ORDERED: HYDROCODON-ACE1 EA10 PO (13:30)
--- NOTE | 2020-01-05 14:00 | NUR ---
ALEXIS MOELLERKatie SERVED TO PATIENT. DRANK ALL SHE WANTED WITH PAIN OR NAUSEA.
--- NOTE | 2020-01-05 14:29 | NUR ---
INTENSIVIST D/C AT THIS TIME.
[2020-01-05 15:00] VITALS: BP 176/79
--- NOTE | 2020-01-05 17:15 | NUR ---
DISCHARGED TO HOME AMBULATORY WITH FAMILY. DISCHARGE INSTRUCTIONS GIVEN BOTH VERBALLY AND WRITTEN. ALL QUESTIONS ANSWERED. PATIENT VERBALIZED UNDERSTANDING OF SAME. IV TO RIGHT WRIST D/C WITH CATHETER INTACT. NEEDED PRESCRIPTIONS GIVEN TO PATIENT. ALL BELONGINGS WITH PATIENT.
== END 2020-01-05 17:15 | disposition home or self-care (01) ==
LOC: D.OPS 07:21 → D.MS 16:29 → D.OPS 01-05 17:15
PROVIDERS: ATTEND Surgery
DX: K44.9 Diaphragmatic hernia without obstruction or gangrene (principal); K21.9 Gastro-esophageal reflux disease without esophagitis; J45.909 Unspecified asthma, uncomplicated; F41.8 Other specified anxiety disorders; I10 Essential (primary) hypertension; Z72.0 Tobacco use; J18.9 Pneumonia, unspecified organism